=== PATIENT | female | born 1935 | race Caucasian/White ===

== ENCOUNTER 2017-04-28 16:17 | Inpatient (IN) | payer MEDICARE ==
[~2017-04-28] VITALS: Ht 160 cm; Wt 74.5 kg
[~2017-04-28 16:17] MED LIST: ACET500T68 PO; AMLO10TA2 PO; AMLO5TAB4 PO; ASPI-612 PO; CITA10TA4 PO; CITA20TA5 PO; DOCU-109 PO; DOCU100C28 PO; FURO40TA4 PO; Hydrocodone/Acetaminophen PO; IPRA3AMP NEB; LEVE250T30 PO; LEVO250T25 PO; LEVO500T59 PO; LOSA1TAB16 PO; LOSA1TAB17 PO; MELO7.5T29 PO; PANT40TA5 PO; POTASSIUM CHLO10 MEQ PO; blood pressure med
--- NOTE | 2017-04-28 16:45 | PHYS DOC ---
Past Medical History Past Medical History: Anxiety, Arthritis, Dementia, GERD, Hypertension Additional Past Medical Histor: Left side brain aneurysm, possible depression Past Surgical History: Other Additional Past Surgical Histo: Aneursym, L hip surgery Alcohol Use: None Drug Use: None Adult General Chief Complaint Chief Complaint: HEADACHE HPI HPI Patient is a 81 year old F who presents with a headache from the long-term. When EMS got there to transfer the patient her O2 saturations are 87% on room air therefore they placed on 2 L nasal cannula which option levels have gone above 90%. She states the headaches been there for the past day. Patient denies any fevers. Patient denies any chest pain or shortness of breath. Patient does complain of nausea however no vomiting/diarrhea. She does complain of some lower extremity swelling has been present for the past couple days. He should other complaints. Pertinent exam findings: Heart was regular rate and rhythm, 3/6 ESTHRE Lungs Are clear to auscultation bilaterally without crackles wheezes or rales +2 pitting edema to lower extremity bilaterally ED course: Patient was seen and examined upon arrival CBC, CMP, troponin, EKG, chest x-ray , CT scan of the head, BnP were ordered 2114: Updated family on CT results and lab results and the plan to admit for further evaluation and management of her hypoxia 2133:Discussed CC/HP/PMH with Dr. Prajapati and recommends admit with a consult to pulmonary Pertinent social: 1651: EKG shows sinus tachycardia rate of [address] scan of the head without contrast: Impression: 1. Age-appropriate atrophy without any acute intracranial process. 2. Postoperative changes of left parietal craniotomy with clipping/coiling. 3. 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 MDM: After reviewing the chart, CC/HPI/PMH, physical exam, [lab results], [ radiological results], I do not think the patient have an acute PA or PE this can she being to her hypoxia however since the patient is needing approximate 4 L nasal cannula to keep her O2 saturations above 90% she will be admitted to the hospital for further evaluation and management and pulmonary will be placed on consult. Review of Systems Review of Systems GEN: Denies fevers, chills, sweats HEENT: Denies blurred vision, sore throat CV: Denies chest pain RESP: Denies shortness of air, cough GI: Denies n/v/d NEURO: Headache, Denies confusion, dizziness MSK: Lower leg swelling Current Medications Current Medications Current Medications Medications (Trade) Dose Ordered Sig/Jose Luis Start Time Stop Time Status Last Admin Dose Admin Acetaminophen (Tylenol) 650 mg PRN Q4HRS PRN 04/28/17 21:45 04/29/17 21:44 Iohexol (Omnipaque 300 Mg/ml) 75 ml 1X ONCE 04/28/17 19:30 04/28/17 19:31 DC 04/28/17 19:58 75 ML Morphine Sulfate 2 mg PRN Q2HR PRN 04/28/17 21:45 04/29/17 21:44 Ondansetron HCl (Zofran) 4 mg PRN Q8HRS PRN 04/28/17 21:45 04/29/17 21:44 Sodium Chloride 1,000 ml @ 75 mls/hr [id number] 04/28/17 21:40 04/29/17 21:39 Allergies Allergies Allergies Coded Allergies Type Severity Reaction Last Updated Verified Penicillins Allergy Intermediate 05/18/16 Yes Sulfa (Sulfonamide Antibiotics) Allergy Intermediate 05/18/16 Yes cefaclor Allergy Intermediate 05/18/16 Yes I S O L A T I O N *CONTACT* Allergy Unknown 11/30/16 Yes Physical Exam Physical Exam GEN.: No apparent distress. Alert and oriented. HEENT: Head is normocephalic, atraumatic NECK: Supple. LUNGS: CTAB. HEART: RRR, 3/6 ESTHER. Peripheral pulses intact ABDOMEN: Soft, nontender. Positive bowel sounds. EXTREMITIES: Without any cyanosis, +2 pitting edema to lower show many bilaterally NEUROLOGIC: Normal speech, normal tone PSYCHIATRIC: Normal affect, normal mood. SKIN: No ulcerations Current Patient Data Vital Signs Vital Signs Date Time Temp Pulse Resp B/P (MAP) Pulse Ox O2 Delivery O2 Flow Rate FiO2 04/28/17 21:40 101 24 126/69 (88) 89 Nasal Cannula 3.0 04/28/17 16:31 97.8 97.8 Lab Values Laboratory Tests Test 04/28/17 16:46 04/28/17 17:40 White Blood Count 9.0 x10^3/uL (4.0-11.0) Red Blood Count 4.30 x10^6/uL (3.50-5.40) Hemoglobin 14.2 g/dL (12.0-15.5) Hematocrit 43.0 % (36.0-47.0) Mean Corpuscular Volume 100 fL (79-100) Mean Corpuscular Hemoglobin 33 pg (25-35) Mean Corpuscular Hemoglobin Concent 33 g/dL (31-37) Red Cell Distribution Width 13.4 % (11.5-14.5) Platelet Count 349 x10^3/uL (140-400) Neutrophils (%) (Auto) 72 % (31-73) Lymphocytes (%) (Auto) 17 % (24-48) L Monocytes (%) (Auto) 9 % (0-9) Eosinophils (%) (Auto) 2 % (0-3) Basophils (%) (Auto) 1 % (0-3) Neutrophils # (Auto) 6.4 x10^3uL (1.8-7.7) Lymphocytes # (Auto) 1.6 x10^3/uL (1.0-4.8) Monocytes # (Auto) 0.8 x10^3/uL (0.0-1.1) Eosinophils # (Auto) 0.1 x10^3/uL (0.0-0.7) Basophils # (Auto) 0.0 x10^3/uL (0.0-0.2) Sodium Level 142 mmol/L (136-145) Potassium Level 3.7 mmol/L (3.5-5.1) Chloride Level 102 mmol/L (98-107) Carbon Dioxide Level 31 mmol/L (21-32) Anion Gap 9 (6-14) Blood Urea Nitrogen 32 mg/dL (7-20) H Creatinine 0.8 mg/dL (0.6-1.0) Estimated GFR (Cockcroft-Gault) 69.0 BUN/Creatinine Ratio 40 (6-20) H Glucose Level 142 mg/dL (70-99) H Lactic Acid Level 2.1 mmol/L (0.4-2.0) H Calcium Level 8.9 mg/dL (8.5-10.1) Total Bilirubin 0.2 mg/dL (0.2-1.0) Aspartate Amino Transferase (AST) 15 U/L (15-37) Alanine Aminotransferase (ALT) 19 U/L (14-59) Alkaline Phosphatase 58 U/L (46-116) Troponin I Quantitative < 0.017 ng/mL (0.000-0.055) MQ-Iov-G-Type Natriuretic Peptide 85 pg/mL (0-449) Total Protein 7.2 g/dL (6.4-8.2) Albumin 3.5 g/dL (3.4-5.0) Albumin/Globulin Ratio 0.9 (1.0-1.7) L Urine Collection Type U cath Urine Color Yellow Urine Clarity Cloudy Urine pH 6.0 Urine Specific [place] >=1.030 Urine Protein Negative mg/dL (NEG-TRACE) Urine Glucose (UA) Negative mg/dL (NEG) Urine Ketones (Stick) Negative mg/dL (NEG) Urine Blood Negative (NEG) Urine Nitrite Negative (NEG) Urine Bilirubin Negative (NEG) Urine Urobilinogen Dipstick 0.2 mg/dL (0.2 mg/dL) Urine Leukocyte Esterase Small (NEG) Urine RBC 0 /HPF (0-2) Urine WBC 1-4 /HPF (0-4) Urine Squamous Epithelial Cells Few /LPF Urine Bacteria Many /HPF (0-FEW) Laboratory Tests 04/28/17 16:46 Laboratory Tests 04/28/17 16:46 EKG EKG EKG shows sinus tachycardia rate of 106 no STEMI [] Radiology/Procedures Radiology/Procedures CT scan of the head, Impression: 1. Age-appropriate atrophy without any acute intracranial process. 2. Postoperative changes of left parietal craniotomy with clipping/coiling. 3. 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 CTA of the chest IMPRESSION: 1. The study is negative for pulmonary embolism. 2. Diffuse atheromatous aortic calcification without aneurysm. 3. Large hiatal hernia.[] Course & Med Decision Making Course & Med Decision Making Pertinent Labs and Imaging studies reviewed. (See chart for details) [] Dragon Disclaimer Dragon Disclaimer This electronic medical record was generated, in whole or in part, using a voice recognition dictation system. Departure Departure Impression: Primary Impression: Hypoxia Disposition: 09 ADMITTED INPATIENT Admitting Physician: Fredy Prajapati Condition: STABLE Referrals: YOEL LAGUNAS (PCP) ISSA BENAVIDES DO Apr 28, 2017 16:45
[2017-04-28 16:53] LABS: BASO % 1 % (0-3); EOS % 2 % (0-3); HEMOGLOBIN 14.2 g/dL (12.0-15.5); LYMPH # 1.6 x10^3/uL (1.0-4.8); LYMPH % 17 % (24-48); MEAN CORPUSCULAR HEMOGLOBIN 33 pg (25-35); MEAN CORPUSCULAR HGB CONC 33 g/dL (31-37); MEAN CORPUSCULAR VOLUME 100 fL (79-100); MONO % 9 % (0-9); NEUT % 72 % (31-73); PLATELET COUNT 349 x10^3/uL (140-400); RED CELL DISTRIBUTION WIDTH 13.4 % (11.5-14.5)
[2017-04-28 17:07] LABS: CALCIUM 8.9 mg/dL (8.5-10.1); CREATININE 0.8 mg/dL (0.6-1.0); POTASSIUM 3.7 mmol/L (3.5-5.1)
[2017-04-28 17:13] LABS: ALBUMIN 3.5 g/dL (3.4-5.0); ALBUMIN/GLOBULIN RATIO 0.9 (1.0-1.7); TOTAL BILIRUBIN 0.2 mg/dL (0.2-1.0); TOTAL PROTEIN 7.2 g/dL (6.4-8.2)
--- NOTE | 2017-04-28 17:24 | RAD ---
Exam performed: CT scan of the head without contrast. Date of Service: 04/28/2017. Comparison: CT head without contrast from 08/29/2015. Clinical History: Headache today. History of previous aneurysm surgery Technique: Helical acquisitions are obtained from the foramen magnum to the vertex without intravenous administration of contrast. Findings: There are postoperative changes of left temporoparietal craniotomy with clipping/coiling in the left temporal region causing streak artifacts. Encephalomalacia in the left upper parietal region. There is prominence of cortical sulci and ventricular system compatible with age related atrophy. There are areas of low-attenuation in both periventricular deep white matter suggesting small vessel ischemic changes. Chronic right cerebellar infarct Normal koch-white differentiation is maintained. There is no extra axial fluid collection, intraparenchymal hemorrhage or mass lesion. The visualized portions of the orbits, paranasal sinuses and the mastoid air cells appear clear. The calvarium is intact. Impression: 1. Age-appropriate atrophy without any acute intracranial process. 2. Postoperative changes of left parietal craniotomy with clipping/coiling. 3. 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 PQRS Compliance Statement: One or more of the following individualized dose reduction techniques were utilized for this examination: 1. Automated exposure control 2. Adjustment of the mA and/or kV according to patient size 3. Use of iterative reconstruction technique Electronically signed by: Nelly Boogie MD (04/28/2017 5:21 PM)
[2017-04-28 17:52] LABS: BILIRUBIN,URINE NEGATIVE (NEG); GLUCOSE,URINE NEGATIVE (NEG); NITRITE,URINE NEGATIVE (NEG); PROTEIN,URINE NEGATIVE (NEG-TRACE); UROBILINOGEN,URINE 0.2 mg/dL (0.2 mg/dL)
[2017-04-28 18:07] LABS: BACTERIA,URINE MANY /HPF (0-FEW); RBC,URINE 0 /HPF (0-2); SQUAMOUS EPITHELIAL CELL,UR FEW /LPF
[2017-04-28] MEDS ORDERED: IOHEXOL 300 MG/ML 75 ML VIAL IV ONE (19:30)
--- NOTE | 2017-04-28 20:33 | RAD ---
Exam performed: CT angiogram chest. HISTORY: Patient is a diabetic complaining of leg numbness extending from the knee down. DATE OF SERVICE:: 04/28/2017 COMPARISON: None TECHNIQUE: Contiguous helical acquisition was obtained through the chest during intravenous administration of 70 cc of Omnipaque 300. Sagittal and coronal MIP images are obtained and reviewed. FINDINGS: Adequate opacification of the pulmonary arteries. No filling defects to suggest pulmonary embolism seen. The aorta demonstrates diffuse atheromatous calcification without aneurysm. No mediastinal or hilar adenopathy seen. Large hiatal hernia. Lungs are essentially clear. Chronic interstitial changes are noted. Limited evaluation of the upper abdominal structures demonstrates a large left renal cyst. IMPRESSION: 1. The study is negative for pulmonary embolism. 2. Diffuse atheromatous aortic calcification without aneurysm. 3. Large hiatal hernia. PQRS Compliance Statement: One or more of the following individualized dose reduction techniques were utilized for this examination: 1. Automated exposure control 2. Adjustment of the mA and/or kV according to patient size 3. Use of iterative reconstruction technique Electronically signed by: Nelly Boogie MD (04/28/2017 8:29 PM)
[2017-04-28] MEDS ORDERED: ACETAMINOPHEN 325 MG TABLET. PO PRN (21:45)
[2017-04-28] MEDS ORDERED: MORPHINE SULFATE 2 MG/ML DISP.SYRIN. IV PRN (21:45)
[2017-04-28] MEDS ORDERED: ONDANSETRON PF 4 MG/2 ML VIAL. IV PRN (21:45)
[2017-04-29] VITALS (8 sets, daily range): BP systolic 100–142; BP diastolic 61–78
[2017-04-29] MEDS: IV NORMAL SALINE 1000ML BAG 1,000 ML IV SCH ×2 (00:30→11:00)
[2017-04-29] MEDS ORDERED: AMLO10TA2 PO (00:47)
[2017-04-29] MEDS ORDERED: CITA10TA4 PO (00:47)
[2017-04-29] MEDS ORDERED: DOCU100C28 PO (00:47)
[2017-04-29] MEDS ORDERED: LOSA1TAB16 PO (00:47)
[2017-04-29] MEDS ORDERED: PANT40TA5 PO (00:47)
[2017-04-29] MEDS ORDERED: CALC-104 PO (00:47)
[2017-04-29] MEDS ORDERED: POTA20TA82 PO (00:47)
[2017-04-29] MEDS ORDERED: ASPI-482 PO (00:47)
[2017-04-29] MEDS ORDERED: MULT-301 PO (00:57)
[2017-04-29] MEDS ORDERED: BENZ200C47 PO (00:57)
[2017-04-29] MEDS ORDERED: MOME110A2 IH (00:57)
[2017-04-29] MEDS ORDERED: IPRA3AMP NEB (00:57)
[2017-04-29] MEDS ORDERED: ACET500T68 PO (00:57)
[2017-04-29] MEDS ORDERED: ONDA4TAB12 PO (00:57)
[2017-04-29 04:05] LABS: BASO % 0 % (0-3); EOS % 2 % (0-3); HEMATOCRIT 36.8 % (36.0-47.0); HEMOGLOBIN 12.2 g/dL (12.0-15.5); LYMPH # 1.5 x10^3/uL (1.0-4.8); LYMPH % 16 % (24-48); MEAN CORPUSCULAR HEMOGLOBIN 33 pg (25-35); MEAN CORPUSCULAR HGB CONC 33 g/dL (31-37); MEAN CORPUSCULAR VOLUME 100 fL (79-100); MONO % 8 % (0-9); NEUT % 75 % (31-73); PLATELET COUNT 295 x10^3/uL (140-400); RED CELL DISTRIBUTION WIDTH 13.4 % (11.5-14.5); WHITE BLOOD COUNT 9.6 x10^3/uL (4.0-11.0)
--- NOTE | 2017-04-29 04:08 | ACF ---
Admission Forms Criteria COPD Clinical Indications for Admission to Inpatient Care (Place 'X' for any and all applicable criteria): Admission is indicated for ANY ONE of the following (1)(2)(3): [ ]I. Acute exacerbation by high-risk comorbidity (e.g., pneumonia, dysrhythmia, heart failure, pleural effusion, pneumothorax) or severe underlying COPD (e.g., steroid dependent) [X]II. Inpatient admission required rather than observation care (see Chronic Obstructive Pulmonary Disease: Observation Care) because of ANY ONE of the following: [ ]a) New or pre-existing signs or symptoms of COPD (eg, dyspnea or Tachypnea at rest or with minimal activity) that persist despite outpatient and observation care treatment [ ]b) New-onset hypoxemia (room air SaO2 less than 90%, PO2 less than 60 mm Hg (8.0 kPa)) that persists despite outpatient and observation care treatment [ ]c) Worsening of pre-existing hypoxemia (eg, new or increased requirement for supplemental oxygen to maintain oxygenation at baseline level) that persists despite outpatient and observation care treatment, with oxygen treatment needs performable only in acute inpatient setting [ ]d) Hypercarbia (PCO2 greater than 40 mm Hg (5.3 kPa))-induced respiratory acidosis (pH less than 7.35) that persists despite outpatient and observation care treatment [X]e) Supplemental oxygen or respiratory treatments for over 24 hours that are performable only in acute inpatient setting [ ]f) Chest tube placement with active evacuation (e.g., suction, drainage) (5) [ ]g) Other condition, treatment or monitoring requiring inpatient admission [ ]III. Planned invasive surgical or diagnostic procedures requiring acute- care hospitalization [ ]IV. Acute respiratory failure (e.g., uncompensated hypercarbia, severe hypoxemia) [ ]V. Severe comorbid condition (e.g., severe steroid myopathy, acute vertebral fracture) that has acutely worsened pulmonary function [ ]. Confusion state, lethargy, obtundation, stupor or coma Extended stay beyond goal length of stay may be needed for (31)(32): [ ]a ) Respiratory Failure. [ ]b) Severe or persisting hypoxemia or hypercarbia [ ]c) Severe or persistent dyspnea [ ]d) Comorbidities (e.g. chronic heart failure, atrial fibrillation with rapid response, pneumonia) [ ]e) Malnutrition The original [facility] content created by [facility] has been revised. The portions of the content which have been revised are identified through the use of italic text or in bold, and [facility] has neither reviewed nor approved the modified material. All other unmodified content is copyright [facility]. Please see references footnoted in the original [facility] edition 2016 Admission Criteria Met?: Yes SHEILA LINDSAY Apr 29, 2017 04:08
[2017-04-29 04:09] LABS: CALCIUM 8.3 mg/dL (8.5-10.1); CREATININE 0.7 mg/dL (0.6-1.0); GFR 80.5; POTASSIUM 3.6 mmol/L (3.5-5.1)
--- NOTE | 2017-04-29 06:27 | EKG ---
[facility] [address] [place] [address] Test Date: 2017-04-28 Test Time: 16:49:28 Pat Name: CHEIKH VALENCIA Department: Room: 204 1 Gender: F Telemetry Technician: : [id number] Requested By: ISSA BENAVIDES Order Number: [id number] Reading MD: Rosanna Reyes Measurements Intervals [place] Rate: 106 P: 27 TN: 158 QRS: 13 QRSD: 80 T: 19 QT: 346 QTc: 461 Interpretive Statements SINUS TACHYCARDIA NON SPECIFIC T ABNORMALITY Electronically Signed On 05-01-2017 18:50:07 CDT by Rosanna Reyes
--- NOTE | 2017-04-29 08:07 | RAD ---
Indication cough. Difficulty breathing. A single view of the chest was obtained. Comparison is made to an examination 5 months earlier. The heart and pulmonary vessels appear normal. There are probable background changes of emphysema and/or fibrosis. An acute finding in the chest is not seen. There is no consolidated pneumonia significant pleural fluid collection or pneumothorax. Kyphoplasty changes are noted involving a lower thoracic vertebral body segment. Large hiatus hernia is noted. IMPRESSION: No acute finding. Chronic changes are noted.
[2017-04-29] MEDS ORDERED: ACETAMINOPHEN 325 MG TABLET. PO PRN (10:30)
[2017-04-29] MEDS ORDERED: hydrALAZINE 20 MG/ML VIAL. IVP PRN (10:30)
[2017-04-29] MEDS ORDERED: ALBUTEROL SULFATE 2.5 MG/3 ML NEBU. NEB PRN (10:30)
[2017-04-29] MEDS ORDERED: HYDROcodone/APAP 5/325MG 1 TAB TABLET PO PRN (10:30)
[2017-04-29] MEDS ORDERED: ONDANSETRON PF 4 MG/2 ML VIAL. IV PRN (10:30)
--- NOTE | 2017-04-29 11:28 | PDOC1 ---
History and Physical Past Medical History Cardiovascular: HTN GI: GERD Family History Family History: Heart Disease Social History ALCOHOL: none Drugs: None Current Problem List Problem List Problems Medical Problems: (1) Hypoxia Status: Acute Current Medications Current Medications Current Medications Medications (Trade) Dose Ordered Sig/Jose Luis Start Time Stop Time Status Last Admin Dose Admin Acetaminophen (Tylenol) 325 mg PRN Q6HRS PRN 04/29/17 10:30 Acetaminophen/ Hydrocodone Bitart (Lortab 5/325) 1 tab PRN Q6HRS PRN 04/29/17 10:30 Albuterol Sulfate (Ventolin Neb Soln) 2.5 mg PRN Q4HRS PRN 04/29/17 10:30 Hydralazine HCl (Apresoline) 10 mg PRN Q4HRS PRN 04/29/17 10:30 Iohexol (Omnipaque 300 Mg/ml) 75 ml 1X ONCE 04/28/17 19:30 04/28/17 19:31 DC 04/28/17 19:58 75 ML Morphine Sulfate 2 mg PRN Q2HR PRN 04/28/17 21:45 04/29/17 21:44 Ondansetron HCl (Zofran) 4 mg PRN Q8HRS PRN 04/29/17 10:30 Sodium Chloride 1,000 ml @ 75 mls/hr [id number] 04/28/17 21:40 04/29/17 21:39 04/29/17 00:30 75 MLS/HR Allergies Allergies Allergies Coded Allergies Type Severity Reaction Last Updated Verified Penicillins Allergy Intermediate 05/18/16 Yes Sulfa (Sulfonamide Antibiotics) Allergy Intermediate 05/18/16 Yes cefaclor Allergy Intermediate 05/18/16 Yes I S O L A T I O N *CONTACT* Allergy Unknown 11/30/16 Yes ROS Review of System CONSTITUTIONAL: No fever or chills EYES: No recent changes SKIN: No rash or itching CARDIOVASCULAR: No chest pain, syncope, palpitations, or edema RESPIRATORY: No SOB or cough GASTROINTESTINAL: No nausea, vomiting or abdominal pain NEUROLOGICAL: ? headaches or no weakness ENDOCRINE: No cold or heat intolerance GENITOURINARY: No urgency or frequency of urination MUSCULOSKELETAL: No back pain or joint pain LYMPHATICS: No enlarged lymph nodes PSYCHIATRIC: No anxiety or depression Physical Exam Physical Exam GEN.: No apparent distress. Alert and oriented times 3, slow to respond, HEENT: Head is normocephalic, atraumatic NECK: Supple. no JVD LUNGS: Clear to auscultation.anterior, no distress, normal airflow. HEART: RRR, S1, S2 present. Peripheral pulses intact ABDOMEN: Soft, nontender. Positive bowel sounds. EXTREMITIES: Without any cyanosis. NEUROLOGIC: Normal speech, normal tone PSYCHIATRIC: Normal affect, slow. SKIN: No ulcerations Vitals Vitals Vital Signs Date Time Temp Pulse Resp B/P (MAP) Pulse Ox O2 Delivery O2 Flow Rate FiO2 04/29/17 08:25 Nasal Cannula 3.0 04/29/17 07:25 98.3 85 18 142/78 (99) 94 98.3 Labs Labs Laboratory Tests Test 04/28/17 16:46 04/28/17 17:40 04/29/17 03:35 04/29/17 09:40 White Blood Count 9.0 x10^3/uL (4.0-11.0) 9.6 x10^3/uL (4.0-11.0) Red Blood Count 4.30 x10^6/uL (3.50-5.40) 3.70 x10^6/uL (3.50-5.40) Hemoglobin 14.2 g/dL (12.0-15.5) 12.2 g/dL (12.0-15.5) Hematocrit 43.0 % (36.0-47.0) 36.8 % (36.0-47.0) Mean Corpuscular Volume 100 fL (79-100) 100 fL (79-100) Mean Corpuscular Hemoglobin 33 pg (25-35) 33 pg (25-35) Mean Corpuscular Hemoglobin Concent 33 g/dL (31-37) 33 g/dL (31-37) Red Cell Distribution Width 13.4 % (11.5-14.5) 13.4 % (11.5-14.5) Platelet Count 349 x10^3/uL (140-400) 295 x10^3/uL (140-400) Neutrophils (%) (Auto) 72 % (31-73) 75 % (31-73) Lymphocytes (%) (Auto) 17 % (24-48) 16 % (24-48) Monocytes (%) (Auto) 9 % (0-9) 8 % (0-9) Eosinophils (%) (Auto) 2 % (0-3) 2 % (0-3) Basophils (%) (Auto) 1 % (0-3) 0 % (0-3) Neutrophils # (Auto) 6.4 x10^3uL (1.8-7.7) 7.1 x10^3uL (1.8-7.7) Lymphocytes # (Auto) 1.6 x10^3/uL (1.0-4.8) 1.5 x10^3/uL (1.0-4.8) Monocytes # (Auto) 0.8 x10^3/uL (0.0-1.1) 0.7 x10^3/uL (0.0-1.1) Eosinophils # (Auto) 0.1 x10^3/uL (0.0-0.7) 0.2 x10^3/uL (0.0-0.7) Basophils # (Auto) 0.0 x10^3/uL (0.0-0.2) 0.0 x10^3/uL (0.0-0.2) Sodium Level 142 mmol/L (136-145) 142 mmol/L (136-145) Potassium Level 3.7 mmol/L (3.5-5.1) 3.6 mmol/L (3.5-5.1) Chloride Level 102 mmol/L (98-107) 105 mmol/L (98-107) Carbon Dioxide Level 31 mmol/L (21-32) 32 mmol/L (21-32) Anion Gap 9 (6-14) 5 (6-14) Blood Urea Nitrogen 32 mg/dL (7-20) 23 mg/dL (7-20) Creatinine 0.8 mg/dL (0.6-1.0) 0.7 mg/dL (0.6-1.0) Estimated GFR (Cockcroft-Gault) 69.0 80.5 BUN/Creatinine Ratio 40 (6-20) Glucose Level 142 mg/dL (70-99) 98 mg/dL (70-99) Lactic Acid Level 2.1 mmol/L (0.4-2.0) Calcium Level 8.9 mg/dL (8.5-10.1) 8.3 mg/dL (8.5-10.1) Total Bilirubin 0.2 mg/dL (0.2-1.0) Aspartate Amino Transf (AST/SGOT) 15 U/L (15-37) Alanine Aminotransferase (ALT/SGPT) 19 U/L (14-59) Alkaline Phosphatase 58 U/L (46-116) Troponin I Quantitative < 0.017 ng/mL (0.000-0.055) < 0.017 ng/mL (0.000-0.055) < 0.017 ng/mL (0.000-0.055) YX-Slu-Q-Type Natriuretic Peptide 85 pg/mL (0-449) Total Protein 7.2 g/dL (6.4-8.2) Albumin 3.5 g/dL (3.4-5.0) Albumin/Globulin Ratio 0.9 (1.0-1.7) Urine Collection Type U cath Urine Color Yellow Urine Clarity Cloudy Urine pH 6.0 Urine Specific [place] >=1.030 Urine Protein Negative mg/dL (NEG-TRACE) Urine Glucose (UA) Negative mg/dL (NEG) Urine Ketones (Stick) Negative mg/dL (NEG) Urine Blood Negative (NEG) Urine Nitrite Negative (NEG) Urine Bilirubin Negative (NEG) Urine Urobilinogen Dipstick 0.2 mg/dL (0.2 mg/dL) Urine Leukocyte Esterase Small (NEG) Urine RBC 0 /HPF (0-2) Urine WBC 1-4 /HPF (0-4) Urine Squamous Epithelial Cells Few /LPF Urine Bacteria Many /HPF (0-FEW) Laboratory Tests Test 04/28/17 16:46 04/28/17 17:40 04/29/17 03:35 04/29/17 09:40 White Blood Count 9.0 x10^3/uL (4.0-11.0) 9.6 x10^3/uL (4.0-11.0) Red Blood Count 4.30 x10^6/uL (3.50-5.40) 3.70 x10^6/uL (3.50-5.40) Hemoglobin 14.2 g/dL (12.0-15.5) 12.2 g/dL (12.0-15.5) Hematocrit 43.0 % (36.0-47.0) 36.8 % (36.0-47.0) Mean Corpuscular Volume 100 fL (79-100) 100 fL (79-100) Mean Corpuscular Hemoglobin 33 pg (25-35) 33 pg (25-35) Mean Corpuscular Hemoglobin Concent 33 g/dL (31-37) 33 g/dL (31-37) Red Cell Distribution Width 13.4 % (11.5-14.5) 13.4 % (11.5-14.5) Platelet Count 349 x10^3/uL (140-400) 295 x10^3/uL (140-400) Neutrophils (%) (Auto) 72 % (31-73) 75 % (31-73) Lymphocytes (%) (Auto) 17 % (24-48) 16 % (24-48) Monocytes (%) (Auto) 9 % (0-9) 8 % (0-9) Eosinophils (%) (Auto) 2 % (0-3) 2 % (0-3) Basophils (%) (Auto) 1 % (0-3) 0 % (0-3) Neutrophils # (Auto) 6.4 x10^3uL (1.8-7.7) 7.1 x10^3uL (1.8-7.7) Lymphocytes # (Auto) 1.6 x10^3/uL (1.0-4.8) 1.5 x10^3/uL (1.0-4.8) Monocytes # (Auto) 0.8 x10^3/uL (0.0-1.1) 0.7 x10^3/uL (0.0-1.1) Eosinophils # (Auto) 0.1 x10^3/uL (0.0-0.7) 0.2 x10^3/uL (0.0-0.7) Basophils # (Auto) 0.0 x10^3/uL (0.0-0.2) 0.0 x10^3/uL (0.0-0.2) Sodium Level 142 mmol/L (136-145) 142 mmol/L (136-145) Potassium Level 3.7 mmol/L (3.5-5.1) 3.6 mmol/L (3.5-5.1) Chloride Level 102 mmol/L (98-107) 105 mmol/L (98-107) Carbon Dioxide Level 31 mmol/L (21-32) 32 mmol/L (21-32) Anion Gap 9 (6-14) 5 (6-14) Blood Urea Nitrogen 32 mg/dL (7-20) 23 mg/dL (7-20) Creatinine 0.8 mg/dL (0.6-1.0) 0.7 mg/dL (0.6-1.0) Estimated GFR (Cockcroft-Gault) 69.0 80.5 BUN/Creatinine Ratio 40 (6-20) Glucose Level 142 mg/dL (70-99) 98 mg/dL (70-99) Lactic Acid Level 2.1 mmol/L (0.4-2.0) Calcium Level 8.9 mg/dL (8.5-10.1) 8.3 mg/dL (8.5-10.1) Total Bilirubin 0.2 mg/dL (0.2-1.0) Aspartate Amino Transf (AST/SGOT) 15 U/L (15-37) Alanine Aminotransferase (ALT/SGPT) 19 U/L (14-59) Alkaline Phosphatase 58 U/L (46-116) Troponin I Quantitative < 0.017 ng/mL (0.000-0.055) < 0.017 ng/mL (0.000-0.055) < 0.017 ng/mL (0.000-0.055) ZB-Kui-G-Type Natriuretic Peptide 85 pg/mL (0-449) Total Protein 7.2 g/dL (6.4-8.2) Albumin 3.5 g/dL (3.4-5.0) Albumin/Globulin Ratio 0.9 (1.0-1.7) Urine Collection Type U cath Urine Color Yellow Urine Clarity Cloudy Urine pH 6.0 Urine Specific [place] >=1.030 Urine Protein Negative mg/dL (NEG-TRACE) Urine Glucose (UA) Negative mg/dL (NEG) Urine Ketones (Stick) Negative mg/dL (NEG) Urine Blood Negative (NEG) Urine Nitrite Negative (NEG) Urine Bilirubin Negative (NEG) Urine Urobilinogen Dipstick 0.2 mg/dL (0.2 mg/dL) Urine Leukocyte Esterase Small (NEG) Urine RBC 0 /HPF (0-2) Urine WBC 1-4 /HPF (0-4) Urine Squamous Epithelial Cells Few /LPF Urine Bacteria Many /HPF (0-FEW) VTE Prophylaxis Ordered VTE Prophylaxis Devices: Yes VTE Pharmacological Prophylaxi: Yes ANAHY LOUIE MD Apr 29, 2017 11:28
[2017-04-29] MEDS: IPRATRPIUM/ALBUTEROL 0.5/2.5MG 3 ML NEBU. NEB SCH ×3 (11:52→19:44)
[2017-04-29] MEDS: POTASSIUM CHLORIDE 20 MEQ TABLET.ER. PO SCH (12:00)
[2017-04-29] MEDS: hydroCHLOROthiazide 25 MG TABLET PO SCH (12:00)
[2017-04-29] MEDS: amLODIPine BESYLATE 10 MG TABLET PO SCH (12:35)
[2017-04-29] MEDS: FUROSEMIDE 40 MG TABLET. PO SCH (12:35)
[2017-04-29] MEDS: PANTOPRAZOLE 40 MG TABLET.DR. PO SCH (12:36)
[2017-04-29] MEDS: LOSARTAN POTASSIUM 50 MG TABLET. PO SCH (12:37)
--- NOTE | 2017-04-29 12:48 | PDOC ---
PULMONARY PROGRESS NOTES Vitals Vital Signs Date Time Temp Pulse Resp B/P (MAP) Pulse Ox O2 Delivery O2 Flow Rate FiO2 04/29/17 12:37 85 142/78 04/29/17 11:55 93 Nasal Cannula 2.0 04/29/17 07:25 98.3 18 98.3 General: Alert, No acute distress Lungs: Clear Cardiovascular: S1 Abdomen: Soft Extremities: No Edema Labs Laboratory Tests Test 04/28/17 16:46 04/28/17 17:40 04/29/17 03:35 04/29/17 09:40 White Blood Count 9.0 x10^3/uL (4.0-11.0) 9.6 x10^3/uL (4.0-11.0) Red Blood Count 4.30 x10^6/uL (3.50-5.40) 3.70 x10^6/uL (3.50-5.40) Hemoglobin 14.2 g/dL (12.0-15.5) 12.2 g/dL (12.0-15.5) Hematocrit 43.0 % (36.0-47.0) 36.8 % (36.0-47.0) Mean Corpuscular Volume 100 fL (79-100) 100 fL (79-100) Mean Corpuscular Hemoglobin 33 pg (25-35) 33 pg (25-35) Mean Corpuscular Hemoglobin Concent 33 g/dL (31-37) 33 g/dL (31-37) Red Cell Distribution Width 13.4 % (11.5-14.5) 13.4 % (11.5-14.5) Platelet Count 349 x10^3/uL (140-400) 295 x10^3/uL (140-400) Neutrophils (%) (Auto) 72 % (31-73) 75 % (31-73) Lymphocytes (%) (Auto) 17 % (24-48) 16 % (24-48) Monocytes (%) (Auto) 9 % (0-9) 8 % (0-9) Eosinophils (%) (Auto) 2 % (0-3) 2 % (0-3) Basophils (%) (Auto) 1 % (0-3) 0 % (0-3) Neutrophils # (Auto) 6.4 x10^3uL (1.8-7.7) 7.1 x10^3uL (1.8-7.7) Lymphocytes # (Auto) 1.6 x10^3/uL (1.0-4.8) 1.5 x10^3/uL (1.0-4.8) Monocytes # (Auto) 0.8 x10^3/uL (0.0-1.1) 0.7 x10^3/uL (0.0-1.1) Eosinophils # (Auto) 0.1 x10^3/uL (0.0-0.7) 0.2 x10^3/uL (0.0-0.7) Basophils # (Auto) 0.0 x10^3/uL (0.0-0.2) 0.0 x10^3/uL (0.0-0.2) Sodium Level 142 mmol/L (136-145) 142 mmol/L (136-145) Potassium Level 3.7 mmol/L (3.5-5.1) 3.6 mmol/L (3.5-5.1) Chloride Level 102 mmol/L (98-107) 105 mmol/L (98-107) Carbon Dioxide Level 31 mmol/L (21-32) 32 mmol/L (21-32) Anion Gap 9 (6-14) 5 (6-14) Blood Urea Nitrogen 32 mg/dL (7-20) 23 mg/dL (7-20) Creatinine 0.8 mg/dL (0.6-1.0) 0.7 mg/dL (0.6-1.0) Estimated GFR (Cockcroft-Gault) 69.0 80.5 BUN/Creatinine Ratio 40 (6-20) Glucose Level 142 mg/dL (70-99) 98 mg/dL (70-99) Lactic Acid Level 2.1 mmol/L (0.4-2.0) Calcium Level 8.9 mg/dL (8.5-10.1) 8.3 mg/dL (8.5-10.1) Total Bilirubin 0.2 mg/dL (0.2-1.0) Aspartate Amino Transf (AST/SGOT) 15 U/L (15-37) Alanine Aminotransferase (ALT/SGPT) 19 U/L (14-59) Alkaline Phosphatase 58 U/L (46-116) Troponin I Quantitative < 0.017 ng/mL (0.000-0.055) < 0.017 ng/mL (0.000-0.055) < 0.017 ng/mL (0.000-0.055) UH-Nzd-U-Type Natriuretic Peptide 85 pg/mL (0-449) Total Protein 7.2 g/dL (6.4-8.2) Albumin 3.5 g/dL (3.4-5.0) Albumin/Globulin Ratio 0.9 (1.0-1.7) Urine Collection Type U cath Urine Color Yellow Urine Clarity Cloudy Urine pH 6.0 Urine Specific [place] >=1.030 Urine Protein Negative mg/dL (NEG-TRACE) Urine Glucose (UA) Negative mg/dL (NEG) Urine Ketones (Stick) Negative mg/dL (NEG) Urine Blood Negative (NEG) Urine Nitrite Negative (NEG) Urine Bilirubin Negative (NEG) Urine Urobilinogen Dipstick 0.2 mg/dL (0.2 mg/dL) Urine Leukocyte Esterase Small (NEG) Urine RBC 0 /HPF (0-2) Urine WBC 1-4 /HPF (0-4) Urine Squamous Epithelial Cells Few /LPF Urine Bacteria Many /HPF (0-FEW) Laboratory Tests Test 04/28/17 16:46 04/28/17 17:40 04/29/17 03:35 04/29/17 09:40 White Blood Count 9.0 x10^3/uL (4.0-11.0) 9.6 x10^3/uL (4.0-11.0) Red Blood Count 4.30 x10^6/uL (3.50-5.40) 3.70 x10^6/uL (3.50-5.40) Hemoglobin 14.2 g/dL (12.0-15.5) 12.2 g/dL (12.0-15.5) Hematocrit 43.0 % (36.0-47.0) 36.8 % (36.0-47.0) Mean Corpuscular Volume 100 fL (79-100) 100 fL (79-100) Mean Corpuscular Hemoglobin 33 pg (25-35) 33 pg (25-35) Mean Corpuscular Hemoglobin Concent 33 g/dL (31-37) 33 g/dL (31-37) Red Cell Distribution Width 13.4 % (11.5-14.5) 13.4 % (11.5-14.5) Platelet Count 349 x10^3/uL (140-400) 295 x10^3/uL (140-400) Neutrophils (%) (Auto) 72 % (31-73) 75 % (31-73) Lymphocytes (%) (Auto) 17 % (24-48) 16 % (24-48) Monocytes (%) (Auto) 9 % (0-9) 8 % (0-9) Eosinophils (%) (Auto) 2 % (0-3) 2 % (0-3) Basophils (%) (Auto) 1 % (0-3) 0 % (0-3) Neutrophils # (Auto) 6.4 x10^3uL (1.8-7.7) 7.1 x10^3uL (1.8-7.7) Lymphocytes # (Auto) 1.6 x10^3/uL (1.0-4.8) 1.5 x10^3/uL (1.0-4.8) Monocytes # (Auto) 0.8 x10^3/uL (0.0-1.1) 0.7 x10^3/uL (0.0-1.1) Eosinophils # (Auto) 0.1 x10^3/uL (0.0-0.7) 0.2 x10^3/uL (0.0-0.7) Basophils # (Auto) 0.0 x10^3/uL (0.0-0.2) 0.0 x10^3/uL (0.0-0.2) Sodium Level 142 mmol/L (136-145) 142 mmol/L (136-145) Potassium Level 3.7 mmol/L (3.5-5.1) 3.6 mmol/L (3.5-5.1) Chloride Level 102 mmol/L (98-107) 105 mmol/L (98-107) Carbon Dioxide Level 31 mmol/L (21-32) 32 mmol/L (21-32) Anion Gap 9 (6-14) 5 (6-14) Blood Urea Nitrogen 32 mg/dL (7-20) 23 mg/dL (7-20) Creatinine 0.8 mg/dL (0.6-1.0) 0.7 mg/dL (0.6-1.0) Estimated GFR (Cockcroft-Gault) 69.0 80.5 BUN/Creatinine Ratio 40 (6-20) Glucose Level 142 mg/dL (70-99) 98 mg/dL (70-99) Lactic Acid Level 2.1 mmol/L (0.4-2.0) Calcium Level 8.9 mg/dL (8.5-10.1) 8.3 mg/dL (8.5-10.1) Total Bilirubin 0.2 mg/dL (0.2-1.0) Aspartate Amino Transf (AST/SGOT) 15 U/L (15-37) Alanine Aminotransferase (ALT/SGPT) 19 U/L (14-59) Alkaline Phosphatase 58 U/L (46-116) Troponin I Quantitative < 0.017 ng/mL (0.000-0.055) < 0.017 ng/mL (0.000-0.055) < 0.017 ng/mL (0.000-0.055) JD-Cou-Q-Type Natriuretic Peptide 85 pg/mL (0-449) Total Protein 7.2 g/dL (6.4-8.2) Albumin 3.5 g/dL (3.4-5.0) Albumin/Globulin Ratio 0.9 (1.0-1.7) Urine Collection Type U cath Urine Color Yellow Urine Clarity Cloudy Urine pH 6.0 Urine Specific [place] >=1.030 Urine Protein Negative mg/dL (NEG-TRACE) Urine Glucose (UA) Negative mg/dL (NEG) Urine Ketones (Stick) Negative mg/dL (NEG) Urine Blood Negative (NEG) Urine Nitrite Negative (NEG) Urine Bilirubin Negative (NEG) Urine Urobilinogen Dipstick 0.2 mg/dL (0.2 mg/dL) Urine Leukocyte Esterase Small (NEG) Urine RBC 0 /HPF (0-2) Urine WBC 1-4 /HPF (0-4) Urine Squamous Epithelial Cells Few /LPF Urine Bacteria Many /HPF (0-FEW) Medications Active Scripts Medications Dose Route/Sig Max Daily Dose Days Date Category Ondansetron Odt (Ondansetron) 4 Mg Tab.rapdis 1 Tab PO Q6HRS PRN 6/8/17 Reported Acetaminophen 500 Mg Tablet 1 Tab PO Q6HRS PRN 04/29/17 Reported Duoneb 0.5-3(2.5) Mg/3 Ml (Albuterol/Ipratropium) 3 Ml Ampul.neb 3 Ml NEB BID 04/29/17 Reported Benzonatate 200 Mg Capsule 1 Cap PO BID 04/29/17 Reported Asmanex (Mometasone Furoate) 110 Mcg Aer.pow.ba 110 Mcg IH BID 04/29/17 Reported Thera-M Caplet (Multivits,Ca,Minerals/Iron/Fa) 1 Each Tablet 1 Each PO DAILY 04/29/17 Reported Potassium Chloride 20 Meq Tablet.er 20 Meq PO DAILY 04/29/17 Reported Pantoprazole Sodium 40 Mg Tablet. 1 Tab PO DAILY 04/29/17 Reported Losartan-Hctz 50-12.5 Mg Tab (Losartan/Hydrochlorothiazide) 1 Each Tablet 1 Tab PO DAILY 04/29/17 Reported Docusate Sodium 100 Mg Capsule 1 Cap PO DAILY 04/29/17 Reported Citracal + D Maximum Caplet (Calcium Citrate/Vitamin D3) 1 Each Tablet 2 Tab PO DAILY 04/29/17 Reported Citalopram Hbr (Citalopram Hydrobromide) 10 Mg Tablet 30 Mg PO DAILY 04/29/17 Reported Aspir 81 (Aspirin) 81 Mg Tablet. 1 Tab PO DAILY 04/29/17 Reported Amlodipine Besylate 10 Mg Tablet 10 Mg PO DAILY 04/29/17 Reported Levaquin (Levofloxacin) 500 Mg Tablet 1 Tab PO DAILY 12/01/16 Rx Meloxicam 7.5 Mg Tablet 1 Tab PO DAILY 11/27/16 Reported Furosemide 40 Mg Tablet 1 Tab PO DAILY 11/27/16 Reported Losartan-Hctz 100-25 Mg Tab (Losartan/Hydrochlorothiazide) 1 Each Tablet 1 Each PO DAILY 08/26/15 Reported Pantoprazole Sodium 40 Mg Tablet. 1 Tab PO DAILY 10/22/14 Reported Impression . 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
--- NOTE | 2017-04-29 13:32 | HP ---
ADMIT DATE: 04/29/2017 CHIEF COMPLAINT: Headache. HISTORY OF PRESENT ILLNESS: An 81-year-old female patient was brought to the hospital from assisted living facility for headaches and questionable unstable vitals, most of the history obtained from the patient and partly from the chart. The patient says yesterday caregiver noted that the patient was not feeling right and check vitals and she noted to have some low saturations which made them to brought her to the hospital. As per the ER notes, the patient was complaining of headache; however, at this time, she denies any headaches. She denies any symptoms such as fever, chills, nausea, vomiting or abdominal pain. I did review her old records. The patient was admitted in the past, here for suspected pneumonia and respiratory distress, and encephalopathy. PAST MEDICAL HISTORY: Hypertension, arthritis, GERD, left side of brain aneurysm, depression, questionable dementia and COPD. PAST SURGICAL HISTORY: Aneurysm and a hip surgery, left. PERSONAL HISTORY: Quit smoking, no alcohol, no drug abuse. Lives in assisted living facility. FAMILY HISTORY: Father and mother , heart disease positive and breast cancer positive in sister. REVIEW OF SYSTEMS AND PHYSICAL EXAMINATION: Please see my electronic H and P. ALLERGIES: PENICILLIN, SULFA, AND CEFACLOR. LABORATORY DATA: CBC, BMP within normal limits. Chemistry 3 sets of troponins within normal limits. Sodium 142, potassium 3.1, chloride 102, gap is 9, creatinine 0.8, glucose 142, Protein is negative, ketones negative, bilirubin negative. IMAGING STUDIES: 1. CT of the chest, this study is negative for PE and diffuse atheromatous aortic calcifications without aneurysm, large hiatal hernia. 2. Head CT, atrophy without any acute intracranial process, large temporoparietal encephalomalacia and chronic right cerebellar infarction. 3. Chest x-ray, no acute findings seen. 4. EKG sinus tachycardia, personally reviewed. ASSESSMENT AND PLAN: 1. Acute respiratory failure of unclear etiology. No signs of pneumonia seen and no signs of chronic obstructive pulmonary disease exacerbation seen. 2. Hypertension. 3. History of dementia. 4. Physical debility, patient mostly in a wheelchair or walker. 5. Large hiatal hernia. PLAN: 1. The patient currently on 3-4 liters of oxygen at rest and we will try to wean off oxygen. I do not think she has any infection at this time, her lungs appears very clear and hemodynamically she is stable. Suspect may be body posture or her COPD can cause respiratory failure. I do not think she has any COPD exacerbation at this time. 2. Continue periodic as needed nebulization. 3. Pulmonology has been consulted. 4. Continue home dose of Lasix for now and order an echocardiogram to rule out any diastolic symptoms. 5. PE has been rule out, ACS has been ruled out. 6. Physical therapy and occupational therapy. 7. mold release worker consultation. ANAHY LOUIE MD DR: DIANE/maddison JOB#: [id number] / [id number]
--- NOTE | 2017-04-29 15:19 | CARD ---
APPROVED REPORT EXAM: Two-dimensional and M-mode echocardiogram with Doppler and color Doppler. Other Information Quality : GoodHR: 88bpm Rhythm : NSR INDICATION Leg swelling, SOB 2D DIMENSIONS RVDd2.4 (2.9-3.5cm)Left Atrium(2D)2.2 (1.6-4.0cm) IVSd0.8 (0.7-1.1cm)Aortic Root(2D)2.9 (2.0-3.7cm) LVDd3.3 (3.9-5.9cm)LVOT Diameter2.3 (1.8-2.4cm) PWd0.9 (0.7-1.1cm)LVDs2.0 (2.5-4.0cm) FS (%) 39.1 %SV31.9 ml LVEF(%)70.8 (>50%) Aortic Valve AoV Peak Jp.171.3cm/sAoV VTI35.2cm AO Peak GR.11.7mmHgLVOT Peak Jp.140.7cm/s AO Mean GR.6mmHgAVA (VMAX)3.44cm2 Mitral Valve MV E Mibenmje33.0cm/sMV E Peak Gr.8mmHg MV DECEL [id number] A Seubxwbo809.4cm/s MV E Mean Gr.4mmHgE/A Ratio0.9 MV A [id number] Pulmonary Valve PV Peak Adpmjnlu704.8cm/s Tricuspid Valve TR P. Qwigjxzm533aj/sTR Peak Gr.37mmHg Pulmonary Vein S1 Ivwielmz98.7cm/sD2 Prnjuimh86.8cm/s PVa [id number] LEFT VENTRICLE The left ventricle is normal size. There is normal left ventricular wall thickness. The left ventricu lar systolic function is normal. The Ejection Fraction is 70%. There is normal LV segmental wall amanuel on. Transmitral Doppler flow pattern is Grade I-abnormal relaxation pattern. RIGHT VENTRICLE The right ventricle is normal size. There is normal right ventricular wall thickness. The right ventr icular systolic function is normal. ATRIA The left atrium size is normal. The right atrium size is normal. The interatrial septum is intact wit h no evidence for an atrial septal defect or patent foramen ovale as noted on 2-D or Doppler imaging. AORTIC VALVE The aortic valve is mildly sclerotic. The aortic valve is trileaflet. Doppler and Color Flow revealed no significant aortic regurgitation. There is no significant aortic valvular stenosis. MITRAL VALVE Mitral annular calcification is mild. The mitral valve leaflets are mildly thickened. There is no jose luis dence of mitral valve prolapse. There is no mitral valve stenosis. Doppler and Color Flow revealed mi ld mitral regurgitation. TRICUSPID VALVE Doppler and Color Flow revealed mild tricuspid regurgitation. The pulmonary artery systolic pressure is estimated at 40 mmHg. There is mild pulmonary hypertension. PULMONIC VALVE Doppler and Color Flow revealed no pulmonic valvular regurgitation. There is no pulmonic valvular cielo nosis. GREAT VESSELS The aortic root is normal in size. The ascending aorta is normal in size. The pulmonary artery is nor mal. The IVC is normal in size and collapses >50% with inspiration. PERICARDIAL EFFUSION There is no evidence of significant pericardial effusion. Critical Notification Critical Value: No <Conclusion> The left ventricular systolic function is normal. The Ejection Fraction is 70%. There is normal LV segmental wall motion. Transmitral Doppler flow pattern is Grade I-abnormal relaxation pattern. Mild mitral regurgitation. Mild tricuspid regurgitation. The pulmonary artery systolic pressure is estimated at 40 mmHg. There is mild pulmonary hypertension. There is no evidence of significant pericardial effusion.
[2017-04-29] MEDS: BUDESONIDE 0.5 MG/2 ML NEBU. NEB SCH (19:44)
[2017-04-29] MEDS ORDERED: IPRATRPIUM/ALBUTEROL 0.5/2.5MG 3 ML NEBU. NEB SCH (21:00)
[2017-04-30 03:40] VITALS: BP 142/63
--- NOTE | 2017-04-30 05:12 | CONS ---
DATE OF CONSULTATION: 04/29/2017 ATTENDING PHYSICIAN: Dr. Butterfield. REASON FOR CONSULTATION: The patient seen in pulmonary consultation at the request of Dr. Butterfield for hypoxemia. HISTORY OF PRESENT ILLNESS: The patient is an 81-year-old that resides at assisted living. She ambulates very little. She apparently had left hip surgery some time ago and since then she does not ambulate very well. She was presented, because of headaches and just not feeling well. She was found to have an incidental finding of saturations of 87%. I was asked to see in consultation. The patient underwent CT angiogram. I reviewed the CT, there is no evidence of pulmonary embolism. There is evidence of some chronic interstitial lung disease, otherwise no acute infiltrates. The patient denies any increasing shortness of breath. No productive cough, no fever, chills or night sweats. PAST MEDICAL HISTORY: Remarkable for hypertension, dementia, arthritis and anxiety. PAST SURGICAL HISTORY: Previous left hip surgery. She has also had an aneurysm repair, not clear where. ALLERGIES: TO PENICILLIN, SULFA AND CEFACLOR. REVIEW OF SYSTEMS: As indicated above, otherwise, a 10-point system was reviewed and negative. SOCIAL HISTORY: She denies any tobacco or alcohol. She states that she quit tobacco in 1988. FAMILY HISTORY: Noncontributory in this age group. CURRENT MEDICATION: List was reviewed. Please see the MRAD. PHYSICAL EXAMINATION: VITAL SIGNS: Currently on 2 L of oxygen supplementation, saturation greater than 92%. HEENT: Eyes, the sclerae was nonicteric. NECK: Jugular venous distention was not elevated. No lymphadenopathy. CHEST: Full expansion. LUNGS: Crackles in the bases. No wheezes. CARDIOVASCULAR: Regular rate and rhythm with S1, S2, no S3. ABDOMEN: Soft, nontender, nondistended. EXTREMITIES: No clubbing or cyanosis. Minimal edema. NEUROLOGIC: The patient was awake, alert, following commands. A detailed neuro exam was not performed. LABORATORY DATA: Reviewed. White count was normal, hemoglobin and hematocrit normal. Electrolytes were noted. BUN was slightly elevated. Troponin was not elevated. A CT reviewed as indicated above. IMPRESSION: 1. Acute respiratory failure secondary to interstitial lung disease. 2. Chronic interstitial lung disease best visualized on CT of the chest. 3. Tobacco dependence in remission, suspect chronic obstructive pulmonary disease. 4. Dementia. 5. Arthritis. PLAN: 1. We will continue oxygen supplementation. 2. A 6-minute walk prior to discharge. 3. No need for additional workup of the interstitial lung disease according to the nurse. The patient has had previous biopsy and was told that she does not require any treatment. 4. Nebulized treatments. I do appreciate the privilege in sharing in the patient's care. MARISA PEARCE MD DR: DIANN/maddison JOB#: [id number] / [id number]
[2017-04-30 05:36] LABS: BASO % 1 % (0-3); EOS % 4 % (0-3); LYMPH # 1.4 x10^3/uL (1.0-4.8); LYMPH % 24 % (24-48); MEAN CORPUSCULAR HEMOGLOBIN 33 pg (25-35); MEAN CORPUSCULAR HGB CONC 32 g/dL (31-37); MEAN CORPUSCULAR VOLUME 101 fL (79-100); MONO % 12 % (0-9); NEUT % 59 % (31-73); PLATELET COUNT 279 x10^3/uL (140-400); RED BLOOD COUNT 3.67 x10^6/uL (3.50-5.40); RED CELL DISTRIBUTION WIDTH 13.3 % (11.5-14.5); WHITE BLOOD COUNT 5.7 x10^3/uL (4.0-11.0)
[2017-04-30 05:57] LABS: CALCIUM 8.6 mg/dL (8.5-10.1); CREATININE 0.8 mg/dL (0.6-1.0); POTASSIUM 3.8 mmol/L (3.5-5.1)
[2017-04-30 07:15] VITALS: BP 148/69
[2017-04-30] MEDS: IPRATRPIUM/ALBUTEROL 0.5/2.5MG 3 ML NEBU. NEB SCH ×4 (07:36→19:50)
[2017-04-30] MEDS: BUDESONIDE 0.5 MG/2 ML NEBU. NEB SCH ×2 (07:36→19:50)
[2017-04-30] MEDS: POTASSIUM CHLORIDE 20 MEQ TABLET.ER. PO SCH (08:34)
[2017-04-30] MEDS: hydroCHLOROthiazide 25 MG TABLET PO SCH (08:35)
[2017-04-30] MEDS: amLODIPine BESYLATE 10 MG TABLET PO SCH (08:35)
[2017-04-30] MEDS: FUROSEMIDE 40 MG TABLET. PO SCH (08:35)
[2017-04-30] MEDS: LOSARTAN POTASSIUM 50 MG TABLET. PO SCH (08:35)
[2017-04-30] MEDS: PANTOPRAZOLE 40 MG TABLET.DR. PO SCH (08:36)
[2017-04-30 10:53] VITALS: BP 123/59
--- NOTE | 2017-04-30 11:18 | PDOC ---
PROGRESS NOTES Chief Complaint Chief Complaint CC: SOB a/p 1. Acute respiratory failure, likely due to interstitial lung disease, 2. Hypertension. stable. 3. History of dementia. 4. Physical debility, patient mostly in a wheelchair or walker. 5. Large hiatal hernia. Plan continue supplemental oxygen 6 walk test if possible PT/OT SNU placement duonebs prn for sob labs reviewed continue current care History of Present Illness History of Present Illness no chest pain no fever Vitals Vitals Vital Signs Date Time Temp Pulse Resp B/P (MAP) Pulse Ox O2 Delivery O2 Flow Rate FiO2 04/30/17 10:53 97.9 85 21 123/59 (80) 95 Nasal Cannula 2.0 97.9 Physical Exam General: Alert, Cooperative Heart: Regular rate, Normal S1 Lungs: Clear Abdomen: Normal bowel sounds Extremities: No clubbing Labs LABS Laboratory Tests Test 04/30/17 05:00 White Blood Count 5.7 x10^3/uL (4.0-11.0) Red Blood Count 3.67 x10^6/uL (3.50-5.40) Hemoglobin 12.0 g/dL (12.0-15.5) Hematocrit 37.0 % (36.0-47.0) Mean Corpuscular Volume 101 fL (79-100) Mean Corpuscular Hemoglobin 33 pg (25-35) Mean Corpuscular Hemoglobin Concent 32 g/dL (31-37) Red Cell Distribution Width 13.3 % (11.5-14.5) Platelet Count 279 x10^3/uL (140-400) Neutrophils (%) (Auto) 59 % (31-73) Lymphocytes (%) (Auto) 24 % (24-48) Monocytes (%) (Auto) 12 % (0-9) Eosinophils (%) (Auto) 4 % (0-3) Basophils (%) (Auto) 1 % (0-3) Neutrophils # (Auto) 3.4 x10^3uL (1.8-7.7) Lymphocytes # (Auto) 1.4 x10^3/uL (1.0-4.8) Monocytes # (Auto) 0.7 x10^3/uL (0.0-1.1) Eosinophils # (Auto) 0.2 x10^3/uL (0.0-0.7) Basophils # (Auto) 0.0 x10^3/uL (0.0-0.2) Sodium Level 141 mmol/L (136-145) Potassium Level 3.8 mmol/L (3.5-5.1) Chloride Level 104 mmol/L (98-107) Carbon Dioxide Level 32 mmol/L (21-32) Anion Gap 5 (6-14) Blood Urea Nitrogen 19 mg/dL (7-20) Creatinine 0.8 mg/dL (0.6-1.0) Estimated GFR (Cockcroft-Gault) 69.0 Glucose Level 92 mg/dL (70-99) Calcium Level 8.6 mg/dL (8.5-10.1) Assessment and Plan Assessmemt and Plan Problems Medical Problems: (1) Hypoxia Status: Acute Problems: Comment Review of Relevant I have reviewed the following items ying (where applicable) has been applied. Labs Laboratory Tests Test 04/28/17 16:46 04/28/17 17:40 04/29/17 00:30 04/29/17 03:35 White Blood Count 9.0 x10^3/uL (4.0-11.0) 9.6 x10^3/uL (4.0-11.0) Red Blood Count 4.30 x10^6/uL (3.50-5.40) 3.70 x10^6/uL (3.50-5.40) Hemoglobin 14.2 g/dL (12.0-15.5) 12.2 g/dL (12.0-15.5) Hematocrit 43.0 % (36.0-47.0) 36.8 % (36.0-47.0) Mean Corpuscular Volume 100 fL (79-100) 100 fL (79-100) Mean Corpuscular Hemoglobin 33 pg (25-35) 33 pg (25-35) Mean Corpuscular Hemoglobin Concent 33 g/dL (31-37) 33 g/dL (31-37) Red Cell Distribution Width 13.4 % (11.5-14.5) 13.4 % (11.5-14.5) Platelet Count 349 x10^3/uL (140-400) 295 x10^3/uL (140-400) Neutrophils (%) (Auto) 72 % (31-73) 75 % (31-73) Lymphocytes (%) (Auto) 17 % (24-48) 16 % (24-48) Monocytes (%) (Auto) 9 % (0-9) 8 % (0-9) Eosinophils (%) (Auto) 2 % (0-3) 2 % (0-3) Basophils (%) (Auto) 1 % (0-3) 0 % (0-3) Neutrophils # (Auto) 6.4 x10^3uL (1.8-7.7) 7.1 x10^3uL (1.8-7.7) Lymphocytes # (Auto) 1.6 x10^3/uL (1.0-4.8) 1.5 x10^3/uL (1.0-4.8) Monocytes # (Auto) 0.8 x10^3/uL (0.0-1.1) 0.7 x10^3/uL (0.0-1.1) Eosinophils # (Auto) 0.1 x10^3/uL (0.0-0.7) 0.2 x10^3/uL (0.0-0.7) Basophils # (Auto) 0.0 x10^3/uL (0.0-0.2) 0.0 x10^3/uL (0.0-0.2) Sodium Level 142 mmol/L (136-145) 142 mmol/L (136-145) Potassium Level 3.7 mmol/L (3.5-5.1) 3.6 mmol/L (3.5-5.1) Chloride Level 102 mmol/L (98-107) 105 mmol/L (98-107) Carbon Dioxide Level 31 mmol/L (21-32) 32 mmol/L (21-32) Anion Gap 9 (6-14) 5 (6-14) Blood Urea Nitrogen 32 mg/dL (7-20) 23 mg/dL (7-20) Creatinine 0.8 mg/dL (0.6-1.0) 0.7 mg/dL (0.6-1.0) Estimated GFR (Cockcroft-Gault) 69.0 80.5 BUN/Creatinine Ratio 40 (6-20) Glucose Level 142 mg/dL (70-99) 98 mg/dL (70-99) Lactic Acid Level 2.1 mmol/L (0.4-2.0) Calcium Level 8.9 mg/dL (8.5-10.1) 8.3 mg/dL (8.5-10.1) Total Bilirubin 0.2 mg/dL (0.2-1.0) Aspartate Amino Transf (AST/SGOT) 15 U/L (15-37) Alanine Aminotransferase (ALT/SGPT) 19 U/L (14-59) Alkaline Phosphatase 58 U/L (46-116) Troponin I Quantitative < 0.017 ng/mL (0.000-0.055) < 0.017 ng/mL (0.000-0.055) JE-Taa-I-Type Natriuretic Peptide 85 pg/mL (0-449) Total Protein 7.2 g/dL (6.4-8.2) Albumin 3.5 g/dL (3.4-5.0) Albumin/Globulin Ratio 0.9 (1.0-1.7) Urine Collection Type U cath Urine Color Yellow Urine Clarity Cloudy Urine pH 6.0 Urine Specific [place] >=1.030 Urine Protein Negative mg/dL (NEG-TRACE) Urine Glucose (UA) Negative mg/dL (NEG) Urine Ketones (Stick) Negative mg/dL (NEG) Urine Blood Negative (NEG) Urine Nitrite Negative (NEG) Urine Bilirubin Negative (NEG) Urine Urobilinogen Dipstick 0.2 mg/dL (0.2 mg/dL) Urine Leukocyte Esterase Small (NEG) Urine RBC 0 /HPF (0-2) Urine WBC 1-4 /HPF (0-4) Urine Squamous Epithelial Cells Few /LPF Urine Bacteria Many /HPF (0-FEW) Nasal Screen MRSA (PCR) Negative (Negative) Test 04/29/17 09:40 04/30/17 05:00 Troponin I Quantitative < 0.017 ng/mL (0.000-0.055) White Blood Count 5.7 x10^3/uL (4.0-11.0) Red Blood Count 3.67 x10^6/uL (3.50-5.40) Hemoglobin 12.0 g/dL (12.0-15.5) Hematocrit 37.0 % (36.0-47.0) Mean Corpuscular Volume 101 fL (79-100) Mean Corpuscular Hemoglobin 33 pg (25-35) Mean Corpuscular Hemoglobin Concent 32 g/dL (31-37) Red Cell Distribution Width 13.3 % (11.5-14.5) Platelet Count 279 x10^3/uL (140-400) Neutrophils (%) (Auto) 59 % (31-73) Lymphocytes (%) (Auto) 24 % (24-48) Monocytes (%) (Auto) 12 % (0-9) Eosinophils (%) (Auto) 4 % (0-3) Basophils (%) (Auto) 1 % (0-3) Neutrophils # (Auto) 3.4 x10^3uL (1.8-7.7) Lymphocytes # (Auto) 1.4 x10^3/uL (1.0-4.8) Monocytes # (Auto) 0.7 x10^3/uL (0.0-1.1) Eosinophils # (Auto) 0.2 x10^3/uL (0.0-0.7) Basophils # (Auto) 0.0 x10^3/uL (0.0-0.2) Sodium Level 141 mmol/L (136-145) Potassium Level 3.8 mmol/L (3.5-5.1) Chloride Level 104 mmol/L (98-107) Carbon Dioxide Level 32 mmol/L (21-32) Anion Gap 5 (6-14) Blood Urea Nitrogen 19 mg/dL (7-20) Creatinine 0.8 mg/dL (0.6-1.0) Estimated GFR (Cockcroft-Gault) 69.0 Glucose Level 92 mg/dL (70-99) Calcium Level 8.6 mg/dL (8.5-10.1) Laboratory Tests Test 04/30/17 05:00 White Blood Count 5.7 x10^3/uL (4.0-11.0) Red Blood Count 3.67 x10^6/uL (3.50-5.40) Hemoglobin 12.0 g/dL (12.0-15.5) Hematocrit 37.0 % (36.0-47.0) Mean Corpuscular Volume 101 fL (79-100) Mean Corpuscular Hemoglobin 33 pg (25-35) Mean Corpuscular Hemoglobin Concent 32 g/dL (31-37) Red Cell Distribution Width 13.3 % (11.5-14.5) Platelet Count 279 x10^3/uL (140-400) Neutrophils (%) (Auto) 59 % (31-73) Lymphocytes (%) (Auto) 24 % (24-48) Monocytes (%) (Auto) 12 % (0-9) Eosinophils (%) (Auto) 4 % (0-3) Basophils (%) (Auto) 1 % (0-3) Neutrophils # (Auto) 3.4 x10^3uL (1.8-7.7) Lymphocytes # (Auto) 1.4 x10^3/uL (1.0-4.8) Monocytes # (Auto) 0.7 x10^3/uL (0.0-1.1) Eosinophils # (Auto) 0.2 x10^3/uL (0.0-0.7) Basophils # (Auto) 0.0 x10^3/uL (0.0-0.2) Sodium Level 141 mmol/L (136-145) Potassium Level 3.8 mmol/L (3.5-5.1) Chloride Level 104 mmol/L (98-107) Carbon Dioxide Level 32 mmol/L (21-32) Anion Gap 5 (6-14) Blood Urea Nitrogen 19 mg/dL (7-20) Creatinine 0.8 mg/dL (0.6-1.0) Estimated GFR (Cockcroft-Gault) 69.0 Glucose Level 92 mg/dL (70-99) Calcium Level 8.6 mg/dL (8.5-10.1) Microbiology 04/28/17 Blood Culture - Preliminary, Resulted NO GROWTH AFTER 1 DAY Medications Current Medications Iohexol (Omnipaque 300 Mg/ml) 75 ml 1X ONCE IV Last administered on 04/28/17t 19:58; Start 04/28/17 at 19:30; Stop 04/28/17 at 19:31; Status DC Ondansetron HCl (Zofran) 4 mg PRN Q8HRS PRN IV NAUSEA/VOMITING; Start 04/28/17 at 21:45; Stop 04/29/17 at 21:44; Status DC Morphine Sulfate 2 mg PRN Q2HR PRN IV SEVERE PAIN; Start 04/28/17 at 21:45; Stop 04/29/17 at 11:34; Status DC Sodium Chloride 1,000 ml @ 75 mls/hr [id number] IV Last administered on 04/29/17 00:30; Start 04/28/17 at 21:40; Stop 04/29/17 at 11:34; Status DC Acetaminophen (Tylenol) 650 mg PRN Q4HRS PRN PO FEVER; Start 04/28/17 at 21:45; Stop 04/29/17 at 21:44; Status DC Acetaminophen (Tylenol) 325 mg PRN Q6HRS PRN PO MILD PAIN / TEMP; Start at 10:30 Acetaminophen/ Hydrocodone Bitart (Lortab 5/325) 1 tab PRN Q6HRS PRN PO MODERATE TO SEVERE PAIN; Start 04/29/17 at 10:30 Hydralazine HCl (Apresoline) 10 mg PRN Q4HRS PRN IVP ELEVATED BP, SEE COMMENTS ; Start 04/29/17 at 10:30 Ondansetron HCl (Zofran) 4 mg PRN Q8HRS PRN IV NAUSEA/VOMITING; Start 04/29/17 at 10:30 Albuterol Sulfate (Ventolin Neb Soln) 2.5 mg PRN Q4HRS PRN NEB SHORTNESS OF BREATH; Start 04/29/17 at 10:30 Amlodipine Besylate (Norvasc) 10 mg DAILY PO Last administered on 04/30/17 08: 35; Start 04/29/17 at 12:00 Furosemide (Lasix) 40 mg DAILY PO Last administered on 04/30/17 08:35; Start at 12:00 Albuterol/ Ipratropium (Duoneb) 3 ml BID NEB ; Start 04/29/17 at 21:00; Stop 04/30 at 09:28; Status DC Pantoprazole Sodium (Protonix) 40 mg DAILY07 PO Last administered on 04/30/17 08:36; Start 04/29/17 at 11:45 Losartan Potassium (Cozaar) 100 mg DAILY PO Last administered on 04/30/17 08:35 ; Start 04/29/17 at 12:00 Budesonide (Pulmicort) 0.5 mg RTBID NEB Last administered on 04/30/17 07:36; Start 04/29/17 at 20:00 Potassium Chloride (Klor-Con) 20 meq [id number] PO Last administered on 08:34; Start 04/29/17 at 12:00 Hydrochlorothiazide (Hydrodiuril) 25 mg DAILY PO Last administered on 04/30/17 08:35; Start 04/29/17 at 12:00 Albuterol/ Ipratropium (Duoneb) 3 ml RTQID NEB Last administered on 04/30/17 07 :36; Start 04/29/17 at 12:00 Active Scripts Active Levaquin (Levofloxacin) 500 Mg Tablet 1 Tab PO DAILY Reported Ondansetron Odt (Ondansetron) 4 Mg Tab.rapdis 1 Tab PO Q6HRS PRN Acetaminophen 500 Mg Tablet 1 Tab PO Q6HRS PRN Duoneb 0.5-3(2.5) Mg/3 Ml (Albuterol/Ipratropium) 3 Ml Ampul.neb 3 Ml NEB BID Benzonatate 200 Mg Capsule 1 Cap PO BID Asmanex (Mometasone Furoate) 110 Mcg Aer.pow.ba 110 Mcg IH BID Thera-M Caplet (Multivits,Ca,Minerals/Iron/Fa) 1 Each Tablet 1 Each PO DAILY Potassium Chloride 20 Meq Tablet.er 20 Meq PO DAILY Pantoprazole Sodium 40 Mg Tablet. 1 Tab PO DAILY Losartan-Hctz 50-12.5 Mg Tab (Losartan/Hydrochlorothiazide) 1 Each Tablet 1 Tab PO DAILY Docusate Sodium 100 Mg Capsule 1 Cap PO DAILY Citracal + D Maximum Caplet (Calcium Citrate/Vitamin D3) 1 Each Tablet 2 Tab PO DAILY Citalopram Hbr (Citalopram Hydrobromide) 10 Mg Tablet 30 Mg PO DAILY Aspir 81 (Aspirin) 81 Mg Tablet. 1 Tab PO DAILY Amlodipine Besylate 10 Mg Tablet 10 Mg PO DAILY Meloxicam 7.5 Mg Tablet 1 Tab PO DAILY Furosemide 40 Mg Tablet 1 Tab PO DAILY Losartan-Hctz 100-25 Mg Tab (Losartan/Hydrochlorothiazide) 1 Each Tablet 1 Each PO DAILY Pantoprazole Sodium 40 Mg Tablet. 1 Tab PO DAILY Vitals/I & O Vital Sign - Last 24 Hours 04/29/17 04/29/17 04/29/17 04/29/17 11:55 12:35 12:37 15:00 Temp 97.6 97.6 Pulse 85 85 78 Resp 20 B/P (MAP) 142/78 142/78 141/75 (97) Pulse Ox 93 95 O2 Delivery Nasal Cannula Nasal Cannula O2 Flow Rate 2.0 3.0 04/29/17 04/29/17 04/29/17 04/29/17 16:28 17:11 19:28 19:46 Temp 98.0 97.4 98.0 97.4 Pulse 85 87 Resp 16 B/P (MAP) 142/78 (99) 100/61 (74) Pulse Ox 93 93 91 94 O2 Delivery Nasal Cannula Nasal Cannula Nasal Cannula Aerosol Mask O2 Flow Rate 2.0 2.0 2.0 04/29/17 04/29/17 04/30/17 04/30/17 20:00 23:00 03:40 07:15 Temp 98.4 98.4 97.9 98.4 98.4 97.9 Pulse 83 83 95 Resp 20 22 20 B/P (MAP) 130/69 (89) 142/63 (89) 148/69 (95) Pulse Ox 92 98 97 O2 Delivery Nasal Cannula Nasal Cannula Nasal Cannula Room Air O2 Flow Rate 2.0 2.0 04/30/17 04/30/17 04/30/17 04/30/17 07:36 08:00 08:35 08:35 Pulse 95 95 B/P (MAP) 148/69 148/69 Pulse Ox 90 O2 Delivery Nasal Cannula Nasal Cannula O2 Flow Rate 2.0 2.0 04/30/17 10:53 Temp 97.9 97.9 Pulse 85 Resp 21 B/P (MAP) 123/59 (80) Pulse Ox 95 O2 Delivery Nasal Cannula O2 Flow Rate 2.0 Intake and Output 04/29/17 04/29/17 04/30/17 15:00 23:00 07:00 Intake Total 900 ml 370 ml 240 ml Output Total 300 ml Balance 900 ml 70 ml 240 ml ANAHY LOUIE MD Apr 30, 2017 11:18
--- NOTE | 2017-04-30 12:45 | PDOC ---
PULMONARY PROGRESS NOTES Subjective no complaints Vitals Vital Signs Date Time Temp Pulse Resp B/P (MAP) Pulse Ox O2 Delivery O2 Flow Rate FiO2 04/30/17 11:25 95 Nasal Cannula 2.0 04/30/17 10:53 97.9 85 21 123/59 (80) 97.9 ROS: No Nausea, No Chest Pain, No Abdominal Pain, No Increase Cough General: Alert, No acute distress Lungs: Crackles Cardiovascular: S1 Abdomen: Soft Neuro Exam: Alert Extremities: No Edema Labs Laboratory Tests Test 04/28/17 16:46 04/28/17 17:40 04/29/17 00:30 04/29/17 03:35 White Blood Count 9.0 x10^3/uL (4.0-11.0) 9.6 x10^3/uL (4.0-11.0) Red Blood Count 4.30 x10^6/uL (3.50-5.40) 3.70 x10^6/uL (3.50-5.40) Hemoglobin 14.2 g/dL (12.0-15.5) 12.2 g/dL (12.0-15.5) Hematocrit 43.0 % (36.0-47.0) 36.8 % (36.0-47.0) Mean Corpuscular Volume 100 fL (79-100) 100 fL (79-100) Mean Corpuscular Hemoglobin 33 pg (25-35) 33 pg (25-35) Mean Corpuscular Hemoglobin Concent 33 g/dL (31-37) 33 g/dL (31-37) Red Cell Distribution Width 13.4 % (11.5-14.5) 13.4 % (11.5-14.5) Platelet Count 349 x10^3/uL (140-400) 295 x10^3/uL (140-400) Neutrophils (%) (Auto) 72 % (31-73) 75 % (31-73) Lymphocytes (%) (Auto) 17 % (24-48) 16 % (24-48) Monocytes (%) (Auto) 9 % (0-9) 8 % (0-9) Eosinophils (%) (Auto) 2 % (0-3) 2 % (0-3) Basophils (%) (Auto) 1 % (0-3) 0 % (0-3) Neutrophils # (Auto) 6.4 x10^3uL (1.8-7.7) 7.1 x10^3uL (1.8-7.7) Lymphocytes # (Auto) 1.6 x10^3/uL (1.0-4.8) 1.5 x10^3/uL (1.0-4.8) Monocytes # (Auto) 0.8 x10^3/uL (0.0-1.1) 0.7 x10^3/uL (0.0-1.1) Eosinophils # (Auto) 0.1 x10^3/uL (0.0-0.7) 0.2 x10^3/uL (0.0-0.7) Basophils # (Auto) 0.0 x10^3/uL (0.0-0.2) 0.0 x10^3/uL (0.0-0.2) Sodium Level 142 mmol/L (136-145) 142 mmol/L (136-145) Potassium Level 3.7 mmol/L (3.5-5.1) 3.6 mmol/L (3.5-5.1) Chloride Level 102 mmol/L (98-107) 105 mmol/L (98-107) Carbon Dioxide Level 31 mmol/L (21-32) 32 mmol/L (21-32) Anion Gap 9 (6-14) 5 (6-14) Blood Urea Nitrogen 32 mg/dL (7-20) 23 mg/dL (7-20) Creatinine 0.8 mg/dL (0.6-1.0) 0.7 mg/dL (0.6-1.0) Estimated GFR (Cockcroft-Gault) 69.0 80.5 BUN/Creatinine Ratio 40 (6-20) Glucose Level 142 mg/dL (70-99) 98 mg/dL (70-99) Lactic Acid Level 2.1 mmol/L (0.4-2.0) Calcium Level 8.9 mg/dL (8.5-10.1) 8.3 mg/dL (8.5-10.1) Total Bilirubin 0.2 mg/dL (0.2-1.0) Aspartate Amino Transf (AST/SGOT) 15 U/L (15-37) Alanine Aminotransferase (ALT/SGPT) 19 U/L (14-59) Alkaline Phosphatase 58 U/L (46-116) Troponin I Quantitative < 0.017 ng/mL (0.000-0.055) < 0.017 ng/mL (0.000-0.055) DI-Hnh-G-Type Natriuretic Peptide 85 pg/mL (0-449) Total Protein 7.2 g/dL (6.4-8.2) Albumin 3.5 g/dL (3.4-5.0) Albumin/Globulin Ratio 0.9 (1.0-1.7) Urine Collection Type U cath Urine Color Yellow Urine Clarity Cloudy Urine pH 6.0 Urine Specific [place] >=1.030 Urine Protein Negative mg/dL (NEG-TRACE) Urine Glucose (UA) Negative mg/dL (NEG) Urine Ketones (Stick) Negative mg/dL (NEG) Urine Blood Negative (NEG) Urine Nitrite Negative (NEG) Urine Bilirubin Negative (NEG) Urine Urobilinogen Dipstick 0.2 mg/dL (0.2 mg/dL) Urine Leukocyte Esterase Small (NEG) Urine RBC 0 /HPF (0-2) Urine WBC 1-4 /HPF (0-4) Urine Squamous Epithelial Cells Few /LPF Urine Bacteria Many /HPF (0-FEW) Nasal Screen MRSA (PCR) Negative (Negative) Test 04/29/17 09:40 04/30/17 05:00 Troponin I Quantitative < 0.017 ng/mL (0.000-0.055) White Blood Count 5.7 x10^3/uL (4.0-11.0) Red Blood Count 3.67 x10^6/uL (3.50-5.40) Hemoglobin 12.0 g/dL (12.0-15.5) Hematocrit 37.0 % (36.0-47.0) Mean Corpuscular Volume 101 fL (79-100) Mean Corpuscular Hemoglobin 33 pg (25-35) Mean Corpuscular Hemoglobin Concent 32 g/dL (31-37) Red Cell Distribution Width 13.3 % (11.5-14.5) Platelet Count 279 x10^3/uL (140-400) Neutrophils (%) (Auto) 59 % (31-73) Lymphocytes (%) (Auto) 24 % (24-48) Monocytes (%) (Auto) 12 % (0-9) Eosinophils (%) (Auto) 4 % (0-3) Basophils (%) (Auto) 1 % (0-3) Neutrophils # (Auto) 3.4 x10^3uL (1.8-7.7) Lymphocytes # (Auto) 1.4 x10^3/uL (1.0-4.8) Monocytes # (Auto) 0.7 x10^3/uL (0.0-1.1) Eosinophils # (Auto) 0.2 x10^3/uL (0.0-0.7) Basophils # (Auto) 0.0 x10^3/uL (0.0-0.2) Sodium Level 141 mmol/L (136-145) Potassium Level 3.8 mmol/L (3.5-5.1) Chloride Level 104 mmol/L (98-107) Carbon Dioxide Level 32 mmol/L (21-32) Anion Gap 5 (6-14) Blood Urea Nitrogen 19 mg/dL (7-20) Creatinine 0.8 mg/dL (0.6-1.0) Estimated GFR (Cockcroft-Gault) 69.0 Glucose Level 92 mg/dL (70-99) Calcium Level 8.6 mg/dL (8.5-10.1) Laboratory Tests Test 04/30/17 05:00 White Blood Count 5.7 x10^3/uL (4.0-11.0) Red Blood Count 3.67 x10^6/uL (3.50-5.40) Hemoglobin 12.0 g/dL (12.0-15.5) Hematocrit 37.0 % (36.0-47.0) Mean Corpuscular Volume 101 fL (79-100) Mean Corpuscular Hemoglobin 33 pg (25-35) Mean Corpuscular Hemoglobin Concent 32 g/dL (31-37) Red Cell Distribution Width 13.3 % (11.5-14.5) Platelet Count 279 x10^3/uL (140-400) Neutrophils (%) (Auto) 59 % (31-73) Lymphocytes (%) (Auto) 24 % (24-48) Monocytes (%) (Auto) 12 % (0-9) Eosinophils (%) (Auto) 4 % (0-3) Basophils (%) (Auto) 1 % (0-3) Neutrophils # (Auto) 3.4 x10^3uL (1.8-7.7) Lymphocytes # (Auto) 1.4 x10^3/uL (1.0-4.8) Monocytes # (Auto) 0.7 x10^3/uL (0.0-1.1) Eosinophils # (Auto) 0.2 x10^3/uL (0.0-0.7) Basophils # (Auto) 0.0 x10^3/uL (0.0-0.2) Sodium Level 141 mmol/L (136-145) Potassium Level 3.8 mmol/L (3.5-5.1) Chloride Level 104 mmol/L (98-107) Carbon Dioxide Level 32 mmol/L (21-32) Anion Gap 5 (6-14) Blood Urea Nitrogen 19 mg/dL (7-20) Creatinine 0.8 mg/dL (0.6-1.0) Estimated GFR (Cockcroft-Gault) 69.0 Glucose Level 92 mg/dL (70-99) Calcium Level 8.6 mg/dL (8.5-10.1) Medications Active Scripts Medications Dose Route/Sig Max Daily Dose Days Date Category Ondansetron Odt (Ondansetron) 4 Mg Tab.rapdis 1 Tab PO Q6HRS PRN 04/29/17 Reported Acetaminophen 500 Mg Tablet 1 Tab PO Q6HRS PRN 04/29/17 Reported Duoneb 0.5-3(2.5) Mg/3 Ml (Albuterol/Ipratropium) 3 Ml Ampul.neb 3 Ml NEB BID 04/29/17 Reported Benzonatate 200 Mg Capsule 1 Cap PO BID 04/29/17 Reported Asmanex (Mometasone Furoate) 110 Mcg Aer.pow.ba 110 Mcg IH BID 04/29/17 Reported Thera-M Caplet (Multivits,Ca,Minerals/Iron/Fa) 1 Each Tablet 1 Each PO DAILY 04/29/17 Reported Potassium Chloride 20 Meq Tablet.er 20 Meq PO DAILY 04/29/17 Reported Pantoprazole Sodium 40 Mg Tablet.dr 1 Tab PO DAILY 04/29/17 Reported Losartan-Hctz 50-12.5 Mg Tab (Losartan/Hydrochlorothiazide) 1 Each Tablet 1 Tab PO DAILY 04/29/17 Reported Docusate Sodium 100 Mg Capsule 1 Cap PO DAILY 04/29/17 Reported Citracal + D Maximum Caplet (Calcium Citrate/Vitamin D3) 1 Each Tablet 2 Tab PO DAILY 04/29/17 Reported Citalopram Hbr (Citalopram Hydrobromide) 10 Mg Tablet 30 Mg PO DAILY 04/29/17 Reported Aspir 81 (Aspirin) 81 Mg Tablet.dr 1 Tab PO DAILY 04/29/17 Reported Amlodipine Besylate 10 Mg Tablet 10 Mg PO DAILY 04/29/17 Reported Levaquin (Levofloxacin) 500 Mg Tablet 1 Tab PO DAILY 12/01/16 Rx Meloxicam 7.5 Mg Tablet 1 Tab PO DAILY 11/27/16 Reported Furosemide 40 Mg Tablet 1 Tab PO DAILY 11/27/16 Reported Losartan-Hctz 100-25 Mg Tab (Losartan/Hydrochlorothiazide) 1 Each Tablet 1 Each PO DAILY 08/26/15 Reported Pantoprazole Sodium 40 Mg Tablet.dr 1 Tab PO DAILY 10/22/14 Reported Impression . 1. Acute respiratory failure secondary to interstitial lung disease. 2. Chronic interstitial lung disease best visualized on CT of the chest. 3. Tobacco dependence in remission, suspect chronic obstructive pulmonary disease. 4. Dementia. 5. Arthritis. Plan . resp status is compensated 1. We will continue oxygen supplementation. 2. A 6-minute walk prior to discharge. 3. No need for additional workup of the interstitial lung disease according to the nurse. The patient has had previous biopsy and was told that she does not require any treatment. 4. Nebulized treatments. MARISA PEARCE MD Apr 30, 2017 12:45
[2017-04-30 15:30] VITALS: BP 111/56
[2017-04-30 19:13] VITALS: BP 115/62
[2017-04-30 23:06] VITALS: BP 134/68
[2017-05-01 03:02] VITALS: BP 145/74
[2017-05-01 04:09] LABS: BASO % 1 % (0-3); EOS % 4 % (0-3); HEMATOCRIT 38.9 % (36.0-47.0); HEMOGLOBIN 12.9 g/dL (12.0-15.5); LYMPH # 1.6 x10^3/uL (1.0-4.8); LYMPH % 26 % (24-48); MEAN CORPUSCULAR HEMOGLOBIN 33 pg (25-35); MEAN CORPUSCULAR HGB CONC 33 g/dL (31-37); MEAN CORPUSCULAR VOLUME 100 fL (79-100); MONO % 11 % (0-9); NEUT % 58 % (31-73); PLATELET COUNT 286 x10^3/uL (140-400); RED BLOOD COUNT 3.91 x10^6/uL (3.50-5.40); RED CELL DISTRIBUTION WIDTH 13.4 % (11.5-14.5); WHITE BLOOD COUNT 6.1 x10^3/uL (4.0-11.0)
[2017-05-01 04:21] LABS: CALCIUM 8.6 mg/dL (8.5-10.1); CREATININE 0.7 mg/dL (0.6-1.0); GFR 80.5; POTASSIUM 3.7 mmol/L (3.5-5.1)
[2017-05-01] MEDS: PANTOPRAZOLE 40 MG TABLET.DR. PO SCH (06:25)
[2017-05-01 07:00] VITALS: BP 145/64
[2017-05-01] MEDS: BUDESONIDE 0.5 MG/2 ML NEBU. NEB SCH (07:48)
[2017-05-01] MEDS: IPRATRPIUM/ALBUTEROL 0.5/2.5MG 3 ML NEBU. NEB SCH ×3 (07:48→16:18)
--- NOTE | 2017-05-01 08:23 | PDOC ---
PROGRESS NOTES Chief Complaint Chief Complaint CC: SOB a/p 1. Acute respiratory failure, likely due to interstitial lung disease, 2. Hypertension. stable. 3. History of dementia. 4. Physical debility, patient mostly in a wheelchair or walker. 5. Large hiatal hernia. 6. UTI- Aerococcus, urinae- started on clindamycin, ID consulted. later abx dc by id. ok to go SNU. Plan continue supplemental oxygen 6 walk test if possible PT/OT SNU placement duonebs prn for sob labs reviewed continue current care History of Present Illness History of Present Illness no chest pain no fever Vitals Vitals Vital Signs Date Time Temp Pulse Resp B/P (MAP) Pulse Ox O2 Delivery O2 Flow Rate FiO2 05/01/17 07:48 96 Nasal Cannula 2.0 05/01/17 03:02 97.8 95 18 145/74 (97) 97.8 Physical Exam General: Alert, Cooperative Heart: Regular rate, Normal S1 Lungs: Crackles Abdomen: Normal bowel sounds Extremities: No clubbing Labs LABS Laboratory Tests Test 05/01/17 04:00 White Blood Count 6.1 x10^3/uL (4.0-11.0) Red Blood Count 3.91 x10^6/uL (3.50-5.40) Hemoglobin 12.9 g/dL (12.0-15.5) Hematocrit 38.9 % (36.0-47.0) Mean Corpuscular Volume 100 fL (79-100) Mean Corpuscular Hemoglobin 33 pg (25-35) Mean Corpuscular Hemoglobin Concent 33 g/dL (31-37) Red Cell Distribution Width 13.4 % (11.5-14.5) Platelet Count 286 x10^3/uL (140-400) Neutrophils (%) (Auto) 58 % (31-73) Lymphocytes (%) (Auto) 26 % (24-48) Monocytes (%) (Auto) 11 % (0-9) Eosinophils (%) (Auto) 4 % (0-3) Basophils (%) (Auto) 1 % (0-3) Neutrophils # (Auto) 3.5 x10^3uL (1.8-7.7) Lymphocytes # (Auto) 1.6 x10^3/uL (1.0-4.8) Monocytes # (Auto) 0.7 x10^3/uL (0.0-1.1) Eosinophils # (Auto) 0.2 x10^3/uL (0.0-0.7) Basophils # (Auto) 0.0 x10^3/uL (0.0-0.2) Sodium Level 140 mmol/L (136-145) Potassium Level 3.7 mmol/L (3.5-5.1) Chloride Level 103 mmol/L (98-107) Carbon Dioxide Level 36 mmol/L (21-32) Anion Gap 1 (6-14) Blood Urea Nitrogen 16 mg/dL (7-20) Creatinine 0.7 mg/dL (0.6-1.0) Estimated GFR (Cockcroft-Gault) 80.5 Glucose Level 92 mg/dL (70-99) Calcium Level 8.6 mg/dL (8.5-10.1) Assessment and Plan Assessmemt and Plan Problems Medical Problems: (1) Hypoxia Status: Acute Problems: Comment Review of Relevant I have reviewed the following items ying (where applicable) has been applied. Labs Laboratory Tests Test 04/29/17 09:40 04/30/17 05:00 05/01/17 04:00 Troponin I Quantitative < 0.017 ng/mL (0.000-0.055) White Blood Count 5.7 x10^3/uL (4.0-11.0) 6.1 x10^3/uL (4.0-11.0) Red Blood Count 3.67 x10^6/uL (3.50-5.40) 3.91 x10^6/uL (3.50-5.40) Hemoglobin 12.0 g/dL (12.0-15.5) 12.9 g/dL (12.0-15.5) Hematocrit 37.0 % (36.0-47.0) 38.9 % (36.0-47.0) Mean Corpuscular Volume 101 fL (79-100) 100 fL (79-100) Mean Corpuscular Hemoglobin 33 pg (25-35) 33 pg (25-35) Mean Corpuscular Hemoglobin Concent 32 g/dL (31-37) 33 g/dL (31-37) Red Cell Distribution Width 13.3 % (11.5-14.5) 13.4 % (11.5-14.5) Platelet Count 279 x10^3/uL (140-400) 286 x10^3/uL (140-400) Neutrophils (%) (Auto) 59 % (31-73) 58 % (31-73) Lymphocytes (%) (Auto) 24 % (24-48) 26 % (24-48) Monocytes (%) (Auto) 12 % (0-9) 11 % (0-9) Eosinophils (%) (Auto) 4 % (0-3) 4 % (0-3) Basophils (%) (Auto) 1 % (0-3) 1 % (0-3) Neutrophils # (Auto) 3.4 x10^3uL (1.8-7.7) 3.5 x10^3uL (1.8-7.7) Lymphocytes # (Auto) 1.4 x10^3/uL (1.0-4.8) 1.6 x10^3/uL (1.0-4.8) Monocytes # (Auto) 0.7 x10^3/uL (0.0-1.1) 0.7 x10^3/uL (0.0-1.1) Eosinophils # (Auto) 0.2 x10^3/uL (0.0-0.7) 0.2 x10^3/uL (0.0-0.7) Basophils # (Auto) 0.0 x10^3/uL (0.0-0.2) 0.0 x10^3/uL (0.0-0.2) Sodium Level 141 mmol/L (136-145) 140 mmol/L (136-145) Potassium Level 3.8 mmol/L (3.5-5.1) 3.7 mmol/L (3.5-5.1) Chloride Level 104 mmol/L (98-107) 103 mmol/L (98-107) Carbon Dioxide Level 32 mmol/L (21-32) 36 mmol/L (21-32) Anion Gap 5 (6-14) 1 (6-14) Blood Urea Nitrogen 19 mg/dL (7-20) 16 mg/dL (7-20) Creatinine 0.8 mg/dL (0.6-1.0) 0.7 mg/dL (0.6-1.0) Estimated GFR (Cockcroft-Gault) 69.0 80.5 Glucose Level 92 mg/dL (70-99) 92 mg/dL (70-99) Calcium Level 8.6 mg/dL (8.5-10.1) 8.6 mg/dL (8.5-10.1) Laboratory Tests Test 05/01/17 04:00 White Blood Count 6.1 x10^3/uL (4.0-11.0) Red Blood Count 3.91 x10^6/uL (3.50-5.40) Hemoglobin 12.9 g/dL (12.0-15.5) Hematocrit 38.9 % (36.0-47.0) Mean Corpuscular Volume 100 fL (79-100) Mean Corpuscular Hemoglobin 33 pg (25-35) Mean Corpuscular Hemoglobin Concent 33 g/dL (31-37) Red Cell Distribution Width 13.4 % (11.5-14.5) Platelet Count 286 x10^3/uL (140-400) Neutrophils (%) (Auto) 58 % (31-73) Lymphocytes (%) (Auto) 26 % (24-48) Monocytes (%) (Auto) 11 % (0-9) Eosinophils (%) (Auto) 4 % (0-3) Basophils (%) (Auto) 1 % (0-3) Neutrophils # (Auto) 3.5 x10^3uL (1.8-7.7) Lymphocytes # (Auto) 1.6 x10^3/uL (1.0-4.8) Monocytes # (Auto) 0.7 x10^3/uL (0.0-1.1) Eosinophils # (Auto) 0.2 x10^3/uL (0.0-0.7) Basophils # (Auto) 0.0 x10^3/uL (0.0-0.2) Sodium Level 140 mmol/L (136-145) Potassium Level 3.7 mmol/L (3.5-5.1) Chloride Level 103 mmol/L (98-107) Carbon Dioxide Level 36 mmol/L (21-32) Anion Gap 1 (6-14) Blood Urea Nitrogen 16 mg/dL (7-20) Creatinine 0.7 mg/dL (0.6-1.0) Estimated GFR (Cockcroft-Gault) 80.5 Glucose Level 92 mg/dL (70-99) Calcium Level 8.6 mg/dL (8.5-10.1) Microbiology 04/28/17 Blood Culture - Preliminary, Resulted NO GROWTH AFTER 2 DAYS 04/28/17 Urine Culture - Final, Complete 04/28/17 Urine Culture Result 1 (CELSA) - Final, Complete Medications Current Medications Iohexol (Omnipaque 300 Mg/ml) 75 ml 1X ONCE IV Last administered on 04/28/17 19:58; Start 04/28/17 at 19:30; Stop 04/28/17 at 19:31; Status DC Ondansetron HCl (Zofran) 4 mg PRN Q8HRS PRN IV NAUSEA/VOMITING; Start 04/28/17 at 21:45; Stop 04/29/17 at 21:44; Status DC Morphine Sulfate 2 mg PRN Q2HR PRN IV SEVERE PAIN; Start 04/28/17 at 21:45; Stop 04/29/17 at 11:34; Status DC Sodium Chloride 1,000 ml @ 75 mls/hr [id number] IV Last administered on 04/29/17 00:30; Start 04/28/17 at 21:40; Stop 04/29/17 at 11:34; Status DC Acetaminophen (Tylenol) 650 mg PRN Q4HRS PRN PO FEVER; Start 04/28/17 at 21:45; Stop 04/29/17 at 21:44; Status DC Acetaminophen (Tylenol) 325 mg PRN Q6HRS PRN PO MILD PAIN / TEMP; Start at 10:30 Acetaminophen/ Hydrocodone Bitart (Lortab 5/325) 1 tab PRN Q6HRS PRN PO MODERATE TO SEVERE PAIN; Start 04/29/17 at 10:30 Hydralazine HCl (Apresoline) 10 mg PRN Q4HRS PRN IVP ELEVATED BP, SEE COMMENTS ; Start 04/29/17 at 10:30 Ondansetron HCl (Zofran) 4 mg PRN Q8HRS PRN IV NAUSEA/VOMITING; Start 04/29/17 at 10:30 Albuterol Sulfate (Ventolin Neb Soln) 2.5 mg PRN Q4HRS PRN NEB SHORTNESS OF BREATH; Start 04/29/17 at 10:30 Amlodipine Besylate (Norvasc) 10 mg DAILY PO Last administered on 04/30/17 08: 35; Start 04/29/17 at 12:00 Furosemide (Lasix) 40 mg DAILY PO Last administered on 04/30/17 08:35; Start at 12:00 Albuterol/ Ipratropium (Duoneb) 3 ml BID NEB ; Start 04/29/17 at 21:00; Stop 04/30 at 09:28; Status DC Pantoprazole Sodium (Protonix) 40 mg DAILY07 PO Last administered on 05/01/17 06:25; Start 04/29/17 at 11:45 Losartan Potassium (Cozaar) 100 mg DAILY PO Last administered on 04/30/17 08:35 ; Start 04/29/17 at 12:00 Budesonide (Pulmicort) 0.5 mg RTBID NEB Last administered on 05/01/17 07:48; Start 04/29/17 at 20:00 Potassium Chloride (Klor-Con) 20 meq [id number] PO Last administered on 08:34; Start 04/29/17 at 12:00 Hydrochlorothiazide (Hydrodiuril) 25 mg DAILY PO Last administered on 04/30/17 08:35; Start 04/29/17 at 12:00 Albuterol/ Ipratropium (Duoneb) 3 ml RTQID NEB Last administered on 05/01/17 07:48; Start 04/29/17 at 12:00 Active Scripts Active Levaquin (Levofloxacin) 500 Mg Tablet 1 Tab PO DAILY Reported Ondansetron Odt (Ondansetron) 4 Mg Tab.rapdis 1 Tab PO Q6HRS PRN Acetaminophen 500 Mg Tablet 1 Tab PO Q6HRS PRN Duoneb 0.5-3(2.5) Mg/3 Ml (Albuterol/Ipratropium) 3 Ml Ampul.neb 3 Ml NEB BID Benzonatate 200 Mg Capsule 1 Cap PO BID Asmanex (Mometasone Furoate) 110 Mcg Aer.pow.ba 110 Mcg IH BID Thera-M Caplet (Multivits,Ca,Minerals/Iron/Fa) 1 Each Tablet 1 Each PO DAILY Potassium Chloride 20 Meq Tablet.er 20 Meq PO DAILY Pantoprazole Sodium 40 Mg Tablet.dr 1 Tab PO DAILY Losartan-Hctz 50-12.5 Mg Tab (Losartan/Hydrochlorothiazide) 1 Each Tablet 1 Tab PO DAILY Docusate Sodium 100 Mg Capsule 1 Cap PO DAILY Citracal + D Maximum Caplet (Calcium Citrate/Vitamin D3) 1 Each Tablet 2 Tab PO DAILY Citalopram Hbr (Citalopram Hydrobromide) 10 Mg Tablet 30 Mg PO DAILY Aspir 81 (Aspirin) 81 Mg Tablet.dr 1 Tab PO DAILY Amlodipine Besylate 10 Mg Tablet 10 Mg PO DAILY Meloxicam 7.5 Mg Tablet 1 Tab PO DAILY Furosemide 40 Mg Tablet 1 Tab PO DAILY Losartan-Hctz 100-25 Mg Tab (Losartan/Hydrochlorothiazide) 1 Each Tablet 1 Each PO DAILY Pantoprazole Sodium 40 Mg Tablet.dr 1 Tab PO DAILY Vitals/I & O Vital Sign - Last 24 Hours 04/30/17 04/30/17 04/30/17 04/30/17 08:35 08:35 10:53 11:25 Temp 97.9 97.9 Pulse 95 95 85 Resp 21 B/P (MAP) 148/69 148/69 123/59 (80) Pulse Ox 95 95 O2 Delivery Nasal Cannula Nasal Cannula O2 Flow Rate 2.0 2.0 04/30/17 04/30/17 04/30/17 04/30/17 15:30 16:27 19:13 19:15 Temp 97.7 98.5 97.7 98.5 Pulse 84 89 Resp 20 B/P (MAP) 111/56 (74) 115/62 (79) Pulse Ox 93 95 O2 Delivery Nasal Cannula Nasal Cannula Nasal Cannula Nasal Cannula O2 Flow Rate 2.0 2.0 2.0 2.0 04/30/17 04/30/17 05/01/17 05/01/17 19:50 23:06 03:02 07:48 Temp 98.5 97.8 98.5 97.8 Pulse 83 95 Resp 20 18 B/P (MAP) 134/68 (90) 145/74 (97) Pulse Ox 96 93 91 96 O2 Delivery Nasal Cannula Nasal Cannula Nasal Cannula Nasal Cannula O2 Flow Rate 2.0 3.0 3.0 2.0 Intake and Output 04/30/17 04/30/17 05/01/17 15:00 23:00 07:00 Intake Total 0 ml Output Total 50 ml Balance -50 ml 0 ml ANAHY LOUIE MD May 01, 2017 08:23
--- NOTE | 2017-05-01 08:48 | PDOC ---
PULMONARY PROGRESS NOTES Subjective sob is better. no cough, no pain, no runny nose. Vitals Vital Signs Date Time Temp Pulse Resp B/P (MAP) Pulse Ox O2 Delivery O2 Flow Rate FiO2 05/01/17 07:48 96 Nasal Cannula 2.0 05/01/17 03:02 97.8 95 18 145/74 (97) 97.8 ROS: No Nausea, No Chest Pain, No Abdominal Pain, No Increase Cough General: Alert, No acute distress HEENT: Other (nc at perrl nose throat clear) Lungs: Crackles Cardiovascular: S1, S2 Abdomen: Soft, Non-tender Neuro Exam: Alert Extremities: No Edema Skin: Warm Labs Laboratory Tests Test 04/29/17 09:40 04/30/17 05:00 05/01/17 04:00 Troponin I Quantitative < 0.017 ng/mL (0.000-0.055) White Blood Count 5.7 x10^3/uL (4.0-11.0) 6.1 x10^3/uL (4.0-11.0) Red Blood Count 3.67 x10^6/uL (3.50-5.40) 3.91 x10^6/uL (3.50-5.40) Hemoglobin 12.0 g/dL (12.0-15.5) 12.9 g/dL (12.0-15.5) Hematocrit 37.0 % (36.0-47.0) 38.9 % (36.0-47.0) Mean Corpuscular Volume 101 fL (79-100) 100 fL (79-100) Mean Corpuscular Hemoglobin 33 pg (25-35) 33 pg (25-35) Mean Corpuscular Hemoglobin Concent 32 g/dL (31-37) 33 g/dL (31-37) Red Cell Distribution Width 13.3 % (11.5-14.5) 13.4 % (11.5-14.5) Platelet Count 279 x10^3/uL (140-400) 286 x10^3/uL (140-400) Neutrophils (%) (Auto) 59 % (31-73) 58 % (31-73) Lymphocytes (%) (Auto) 24 % (24-48) 26 % (24-48) Monocytes (%) (Auto) 12 % (0-9) 11 % (0-9) Eosinophils (%) (Auto) 4 % (0-3) 4 % (0-3) Basophils (%) (Auto) 1 % (0-3) 1 % (0-3) Neutrophils # (Auto) 3.4 x10^3uL (1.8-7.7) 3.5 x10^3uL (1.8-7.7) Lymphocytes # (Auto) 1.4 x10^3/uL (1.0-4.8) 1.6 x10^3/uL (1.0-4.8) Monocytes # (Auto) 0.7 x10^3/uL (0.0-1.1) 0.7 x10^3/uL (0.0-1.1) Eosinophils # (Auto) 0.2 x10^3/uL (0.0-0.7) 0.2 x10^3/uL (0.0-0.7) Basophils # (Auto) 0.0 x10^3/uL (0.0-0.2) 0.0 x10^3/uL (0.0-0.2) Sodium Level 141 mmol/L (136-145) 140 mmol/L (136-145) Potassium Level 3.8 mmol/L (3.5-5.1) 3.7 mmol/L (3.5-5.1) Chloride Level 104 mmol/L (98-107) 103 mmol/L (98-107) Carbon Dioxide Level 32 mmol/L (21-32) 36 mmol/L (21-32) Anion Gap 5 (6-14) 1 (6-14) Blood Urea Nitrogen 19 mg/dL (7-20) 16 mg/dL (7-20) Creatinine 0.8 mg/dL (0.6-1.0) 0.7 mg/dL (0.6-1.0) Estimated GFR (Cockcroft-Gault) 69.0 80.5 Glucose Level 92 mg/dL (70-99) 92 mg/dL (70-99) Calcium Level 8.6 mg/dL (8.5-10.1) 8.6 mg/dL (8.5-10.1) Laboratory Tests Test 05/01/17 04:00 White Blood Count 6.1 x10^3/uL (4.0-11.0) Red Blood Count 3.91 x10^6/uL (3.50-5.40) Hemoglobin 12.9 g/dL (12.0-15.5) Hematocrit 38.9 % (36.0-47.0) Mean Corpuscular Volume 100 fL (79-100) Mean Corpuscular Hemoglobin 33 pg (25-35) Mean Corpuscular Hemoglobin Concent 33 g/dL (31-37) Red Cell Distribution Width 13.4 % (11.5-14.5) Platelet Count 286 x10^3/uL (140-400) Neutrophils (%) (Auto) 58 % (31-73) Lymphocytes (%) (Auto) 26 % (24-48) Monocytes (%) (Auto) 11 % (0-9) Eosinophils (%) (Auto) 4 % (0-3) Basophils (%) (Auto) 1 % (0-3) Neutrophils # (Auto) 3.5 x10^3uL (1.8-7.7) Lymphocytes # (Auto) 1.6 x10^3/uL (1.0-4.8) Monocytes # (Auto) 0.7 x10^3/uL (0.0-1.1) Eosinophils # (Auto) 0.2 x10^3/uL (0.0-0.7) Basophils # (Auto) 0.0 x10^3/uL (0.0-0.2) Sodium Level 140 mmol/L (136-145) Potassium Level 3.7 mmol/L (3.5-5.1) Chloride Level 103 mmol/L (98-107) Carbon Dioxide Level 36 mmol/L (21-32) Anion Gap 1 (6-14) Blood Urea Nitrogen 16 mg/dL (7-20) Creatinine 0.7 mg/dL (0.6-1.0) Estimated GFR (Cockcroft-Gault) 80.5 Glucose Level 92 mg/dL (70-99) Calcium Level 8.6 mg/dL (8.5-10.1) Medications Active Scripts Medications Dose Route/Sig Max Daily Dose Days Date Category Ondansetron Odt (Ondansetron) 4 Mg Tab.rapdis 1 Tab PO Q6HRS PRN 04/29/17 Reported Acetaminophen 500 Mg Tablet 1 Tab PO Q6HRS PRN 04/29/17 Reported Duoneb 0.5-3(2.5) Mg/3 Ml (Albuterol/Ipratropium) 3 Ml Ampul.neb 3 Ml NEB BID 04/29/17 Reported Benzonatate 200 Mg Capsule 1 Cap PO BID 04/29/17 Reported Asmanex (Mometasone Furoate) 110 Mcg Aer.pow.ba 110 Mcg IH BID 04/29/17 Reported Thera-M Caplet (Multivits,Ca,Minerals/Iron/Fa) 1 Each Tablet 1 Each PO DAILY 04/29/17 Reported Potassium Chloride 20 Meq Tablet.er 20 Meq PO DAILY 04/29/17 Reported Pantoprazole Sodium 40 Mg Tablet.dr 1 Tab PO DAILY 04/29/17 Reported Losartan-Hctz 50-12.5 Mg Tab (Losartan/Hydrochlorothiazide) 1 Each Tablet 1 Tab PO DAILY 04/29/17 Reported Docusate Sodium 100 Mg Capsule 1 Cap PO DAILY 04/29/17 Reported Citracal + D Maximum Caplet (Calcium Citrate/Vitamin D3) 1 Each Tablet 2 Tab PO DAILY 04/29/17 Reported Citalopram Hbr (Citalopram Hydrobromide) 10 Mg Tablet 30 Mg PO DAILY 04/29/17 Reported Aspir 81 (Aspirin) 81 Mg Tablet. 1 Tab PO DAILY 04/29/17 Reported Amlodipine Besylate 10 Mg Tablet 10 Mg PO DAILY 04/29/17 Reported Levaquin (Levofloxacin) 500 Mg Tablet 1 Tab PO DAILY 12/01/16 Rx Meloxicam 7.5 Mg Tablet 1 Tab PO DAILY 11/27/16 Reported Furosemide 40 Mg Tablet 1 Tab PO DAILY 11/27/16 Reported Losartan-Hctz 100-25 Mg Tab (Losartan/Hydrochlorothiazide) 1 Each Tablet 1 Each PO DAILY 08/26/15 Reported Pantoprazole Sodium 40 Mg Tablet.dr 1 Tab PO DAILY 10/22/14 Reported Impression . 1. Acute respiratory failure secondary to interstitial lung disease. 2. Chronic interstitial lung disease best visualized on CT of the chest. 3. Tobacco dependence in remission, suspect chronic obstructive pulmonary disease. 4. Dementia. 5. Arthritis. Plan . resp status is compensated 1. oxygen titration 2. A 6-minute walk prior to discharge. 3. No need for additional workup of the interstitial lung disease according to the nurse. The patient has had previous biopsy and was told that she does not require any treatment. 4. Nebulized treatments. 5. increase activity discussed w pt MARKEL ETIENNE MD May 01, 2017 08:48
[2017-05-01] MEDS ORDERED: CLINDAMYCIN 600MG PREMIX 50 ML IV SCH (09:00)
[2017-05-01] MEDS ORDERED: CIPROFLOXACIN 400MG PREMIX 200 ML IV SCH (09:00)
[2017-05-01] MEDS: LOSARTAN POTASSIUM 50 MG TABLET. PO SCH (09:12)
[2017-05-01] MEDS: hydroCHLOROthiazide 25 MG TABLET PO SCH (09:12)
[2017-05-01] MEDS: amLODIPine BESYLATE 10 MG TABLET PO SCH (09:13)
[2017-05-01] MEDS: FUROSEMIDE 40 MG TABLET. PO SCH (09:13)
[2017-05-01] MEDS: POTASSIUM CHLORIDE 20 MEQ TABLET.ER. PO SCH (09:18)
[2017-05-01 11:00] VITALS: BP 107/60
--- NOTE | 2017-05-01 12:42 | PDOC ---
Infectious Disease Note Vital Sign Vital Signs Vital Signs Date Time Temp Pulse Resp B/P (MAP) Pulse Ox O2 Delivery O2 Flow Rate FiO2 05/01/17 12:04 Nasal Cannula 2.0 05/01/17 11:00 98.3 84 22 107/60 (76) 90 98.3 Labs Lab Laboratory Tests Test 05/01/17 04:00 White Blood Count 6.1 x10^3/uL (4.0-11.0) Red Blood Count 3.91 x10^6/uL (3.50-5.40) Hemoglobin 12.9 g/dL (12.0-15.5) Hematocrit 38.9 % (36.0-47.0) Mean Corpuscular Volume 100 fL (79-100) Mean Corpuscular Hemoglobin 33 pg (25-35) Mean Corpuscular Hemoglobin Concent 33 g/dL (31-37) Red Cell Distribution Width 13.4 % (11.5-14.5) Platelet Count 286 x10^3/uL (140-400) Neutrophils (%) (Auto) 58 % (31-73) Lymphocytes (%) (Auto) 26 % (24-48) Monocytes (%) (Auto) 11 % (0-9) Eosinophils (%) (Auto) 4 % (0-3) Basophils (%) (Auto) 1 % (0-3) Neutrophils # (Auto) 3.5 x10^3uL (1.8-7.7) Lymphocytes # (Auto) 1.6 x10^3/uL (1.0-4.8) Monocytes # (Auto) 0.7 x10^3/uL (0.0-1.1) Eosinophils # (Auto) 0.2 x10^3/uL (0.0-0.7) Basophils # (Auto) 0.0 x10^3/uL (0.0-0.2) Sodium Level 140 mmol/L (136-145) Potassium Level 3.7 mmol/L (3.5-5.1) Chloride Level 103 mmol/L (98-107) Carbon Dioxide Level 36 mmol/L (21-32) Anion Gap 1 (6-14) Blood Urea Nitrogen 16 mg/dL (7-20) Creatinine 0.7 mg/dL (0.6-1.0) Estimated GFR (Cockcroft-Gault) 80.5 Glucose Level 92 mg/dL (70-99) Calcium Level 8.6 mg/dL (8.5-10.1) Micro URINE CULTURE RES 1 Final Aerococcus urinae Greater than 100,000 colony forming units per mL BLOOD CULTURE Preliminary NO GROWTH AFTER 2 DAYS Objective Assessment Aerococcus urinae in urine. POA - UA clean - asymptomatic. H/o Ecoli/Enteobact/ Strep Multiple abx allergies: PCN, sulfa and Cefaclor. Reactions unknown Acute hypoxic respiratory failure, on supplemental oxygen. ? Large hiatal hernia causing reflux - now on pantoprazole Interstitial lung disease h/o MRSA nares. Repeat screen neg Plan Plan of Care Has tolerated rocephin/Vantin in past D/c abx and monitor Thank you Attending Co-Sign Attending Co-Sign The patient was seen and interviewed as well as examined at the bedside. The chart was reviewed. The case was discussed. Agree with the plan of care. VLAD MORENO APRN May 01, 2017 12:42 LISSET BARLOW MD May 01, 2017 13:08
[2017-05-01 15:00] VITALS: BP 116/58
--- NOTE | 2017-05-02 01:29 | CONS ---
DATE OF CONSULTATION: 05/01/2017 REFERRING PHYSICIAN: Dr. Butterfield. REASON FOR CONSULTATION: Urinary tract infection. HISTORY OF PRESENT ILLNESS: The patient is an 81-year-old female who resides in [facility] ([place], [place]). According to the patient, she recalls not feeling well. She wants to just sleep. She had a headache and a little bit of upset stomach. Denies fevers, but felt cold. On arrival, she was hypoxic requiring supplemental oxygen. A chest x-ray showed chronic changes. Chest CTA negative PE; and a large hiatal hernia seen. Pulmonology is following. She was afebrile with a normal white blood cell count. Urinalysis showed wbc's 1-4, small leukocyte esterase, negative nitrite, few squamous epithelial cells and many bacteria. Urine culture grew Aerococcus urinae. She was started on clindamycin. ID has been asked to consult for further evaluation and antibiotic management. The patient now has a mild cough and sinus congestion. Her headache has since resolved. Denies sore throat or difficulty swallowing. Her appetite is good. She denies nausea, vomiting or diarrhea. Denies dysuria. She has some urinary incontinence. She has history of a left hip fracture status post repair and does not ambulate much. 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 Previous urinary tract infections associated with Escherichia coli, alpha hemolytic strep and Enterobacter cloacae. Hypertension, osteoarthritis, depression, gastroesophageal reflux, dementia, chronic interstitial lung disease, osteoporosis. PAST SURGICAL HISTORY: Brain aneurysm status post repair, hysterectomy, tonsillectomy, appendectomy, left closed anterior trochanter/subtrochanteric hip fracture status post intramedullary nailing 05/19/2016. FAMILY HISTORY: Positive for cardiovascular disease and breast cancer. SOCIAL HISTORY: The patient currently resides at [facility] ([place], [place]). She is a . Former smoker. ALLERGIES: LISTED PENICILLIN, SULFA, CEFACLOR, REACTIONS UNKNOWN. The patient was not aware of having an allergy. In review of the records, she has tolerated ceftriaxone and Vantin in the past. MEDICATIONS: Clindamycin. Other medications are available and have been reviewed on the JAN. REVIEW OF SYSTEMS: Per HPI. Otherwise, all other review of systems are negative. PHYSICAL EXAMINATION: GENERAL: female, alert and lying in bed in no apparent distress. VITAL SIGNS: Afebrile. Blood pressure 107/60, heart rate 84, respiratory rate 22, pulse oximetry 98% on 2 L nasal cannula. Weight is 164 pounds, BMI 29. HEENT: Pupils are equally round, reactive. Normal conjunctivae. Oral mucosa is pink and moist. No lesions seen. NECK: Supple. LUNGS: Diminished aeration in the bases. Breathing nonlabored. HEART: Normal S1 and S2. ABDOMEN: Obese, bowel sounds are present, soft, nontender. EXTREMITIES: Bilateral lower extremity 1+ edema. No cyanosis. SKIN: Without rash. Warm to touch. NEUROLOGIC: Alert, answers questions and follows commands. She is a poor historian. LABORATORY DATA: Today's WBC 6.1, hemoglobin 12.9, platelet count 286,000, creatinine 0.7, BUN 16, sodium 140, potassium 3.7. Troponin less than 0.017, urinalysis per HPI, MRSA screen negative. Urine culture per HPI. Blood cultures negative to date. Head CT shows postoperative changes of left parietal craniotomy with clipping/coiling; age appropriate atrophy without any acute intracranial process; left temporal parietal encephalomalacia and chronic right cerebellar infarct. CTA chest and chest x-ray per HPI. IMPRESSION: 1. Aerococcus urinae in urine present on admission. 2. MULTIPLE ANTIBIOTIC ALLERGIES TO PENICILLIN, SULFA AND CEFACLOR, REACTIONS UNKNOWN. Has tolerated ceftriaxone and Vantin in the past. 3. Acute hypoxic respiratory failure requiring supplemental oxygen. Possible large hiatal hernia causing reflux. The patient is now on pantoprazole. 4. Interstitial lung disease. PLAN: The patient's urinalysis is unremarkable for infection and she is asymptomatic. Recommend to discontinue the antibiotics and monitor. Supportive care. Dr. Butterfield for asking us to participate in this patient's care. Should you have further questions or concerns, please call. The patient was seen, examined and plan of care implemented by Dr. Lisset Barlow. LISSET BARLOW MD DR: JUDITH/maddison JOB#: [id number] / [id number]
== END 2017-05-01 17:45 | DRG 189 ==
LOC: ER 16:17 → 2 NORTH 21:34
PROVIDERS: ADMIT Internal Medicine; ATTEND Internal Medicine
DX: J96.01 Acute respiratory failure with hypoxia (principal); J84.9 Interstitial pulmonary disease, unspecified; N39.0 Urinary tract infection, site not specified; I10 Essential (primary) hypertension; F17.201 Nicotine dependence, unspecified, in remission; F03.90 Unspecified dementia, unspecified severity, without behavioral disturbance, psychotic disturbance, mood disturbance, and anxiety; K44.9 Diaphragmatic hernia without obstruction or gangrene; R32 Unspecified urinary incontinence; K21.9 Gastro-esophageal reflux disease without esophagitis; M19.90 Unspecified osteoarthritis, unspecified site; F32.9 Major depressive disorder, single episode, unspecified; F41.9 Anxiety disorder, unspecified; M81.0 Age-related osteoporosis without current pathological fracture; Z80.3 Family history of malignant neoplasm of breast; Z90.710 Acquired absence of both cervix and uterus; Z82.49 Family history of ischemic heart disease and other diseases of the circulatory system; Z86.14 Personal history of Methicillin resistant Staphylococcus aureus infection; Z88.1 Allergy status to other antibiotic agents; Z88.0 Allergy status to penicillin; Z88.2 Allergy status to sulfonamides; Z87.81 Personal history of (healed) traumatic fracture; Z90.49 Acquired absence of other specified parts of digestive tract
CPT/HCPCS: 36415; 70450; 71010; 71275; 80048; 80053; 81001; 83605; 83880; 84484; 85027; 87040; 87086; 87641; 93005; 93306; 94640; 94760; J3490; J7030; J7620; Q9967; 97116; 97530; 97535; 99285-25